=== PATIENT | female | born 1940 | race Caucasian/White ===

== ENCOUNTER → 2016-04-05 | Outpatient (CLI) | payer MEDICARE, BC ==
[2016-04-05 10:14] LABS: CH 33.3; HCT 43.2 % (34.0-46.0); HDW 2.97; HGB 14.3 gm/dL (11.4-16.0); MCH 32.7 pg (25.0-35.0); MCHC 33.2 g/dL (31.0-37.0); MCV 98.5 fL (80.0-100.0); Mean Platelet Volume 7.9; RBC 4.38 m/uL (3.80-5.40); WBC 4.8 k/uL (3.8-10.6)
[2016-04-05 10:49] LABS: ALT 61 U/L (9-52); AST 47 U/L (14-36); Alkaline Phosphatase 73 U/L (38-126); Anion Gap 11 mmol/L; Blood Urea Nitrogen 21 mg/dL (7-17); C Reactive Protein <5.0 mg/L (<10.0); Calcium 10.1 mg/dL (8.4-10.2); Carbon Dioxide 25 mmol/L (22-30); Chloride 108 mmol/L (98-107); Cholesterol 197 mg/dL (<200); Glucose 105 mg/dL (74-99); HDL Cholesterol 59 mg/dL (40-60); Non-African American GFR(MDRD) >60 (>60 ml/min/1.73 sqM); Potassium 4.5 mmol/L (3.5-5.1); Sodium 144 mmol/L (137-145); Total Bilirubin 0.8 mg/dL (0.2-1.3); Total Protein 6.9 g/dL (6.3-8.2); Triglycerides 107 mg/dL (<150)
[2016-04-05 12:44] LABS: Erythrocyte Sedimentation Rate 12 mm/hr (0-20)
== END | disposition home or self-care (01) ==
LOC: LABWHC1 09:40
PROVIDERS: ATTEND Internal Medicine
DX: M12.9 Arthropathy, unspecified (principal)
CPT/HCPCS: 36415; 80053; 80061; 85027; 85652; 86140; 86200

== ENCOUNTER → 2016-10-04 | Outpatient (CLI) | payer MEDICARE, OTHER ==
[2016-10-04 11:14] LABS: CH 33.4; CHCM 34.9; HCT 40.6 % (34.0-46.0); HDW 2.81; HGB 14.3 gm/dL (11.4-16.0); MCH 33.9 pg (25.0-35.0); MCHC 35.2 g/dL (31.0-37.0); MCV 96.3 fL (80.0-100.0); Mean Platelet Volume 7.9; RBC 4.21 m/uL (3.80-5.40); RDW 14.2 % (11.5-15.5); WBC 4.5 k/uL (3.8-10.6)
[2016-10-04 11:36] LABS: ALT 67 U/L (9-52); AST 57 U/L (14-36); Alkaline Phosphatase 68 U/L (38-126); Anion Gap 7 mmol/L; Appearance,Urine Clear (Clear); Bilirubin,Urine Negative (Negative); Blood Urea Nitrogen 25 mg/dL (7-17); Calcium 9.8 mg/dL (8.4-10.2); Carbon Dioxide 25 mmol/L (22-30); Chloride 110 mmol/L (98-107); Cholesterol 185 mg/dL (<200); Glucose 97 mg/dL (74-99); Glucose,Urine (UA) Negative (Negative); HDL Cholesterol 56 mg/dL (40-60); Ketones,Urine Negative (Negative); Leukocyte Esterase,Urine Small (Negative); Mucus,Urine Occasional /hpf; Nitrite,Urine Negative (Negative); Non-African American GFR(MDRD) >60 (>60 ml/min/1.73 sqM); PH, Urine 5.5 (5.0-8.0); Particle Count 3311; Potassium 4.6 mmol/L (3.5-5.1); Protein,Urine Trace (Negative); RBC,Urine 1 /hpf (0-5); Sodium 142 mmol/L (137-145); Specific Gravity,Urine 1.023 (1.001-1.035); Squamous Epithelial Cell,Urine 2 /hpf (0-4); Total Bilirubin 0.8 mg/dL (0.2-1.3); Total Protein 6.9 g/dL (6.3-8.2); Triglycerides 100 mg/dL (<150); UA Billing (MACRO vs. MICRO) MICRO; Urobilinogen,Urine <2.0 mg/dL (<2.0); WBC,Urine 2 /hpf (0-5)
[2016-10-04 12:16] LABS: Erythrocyte Sedimentation Rate 7 mm/hr (0-20)
== END | disposition home or self-care (01) ==
LOC: LABWHC1 10:46
PROVIDERS: ATTEND Internal Medicine
DX: E78.5 Hyperlipidemia, unspecified (principal); M06.9 Rheumatoid arthritis, unspecified; D47.2 Monoclonal gammopathy
CPT/HCPCS: 36415; 80053; 80061; 81001; 84165; 85027; 85652

== ENCOUNTER → 2017-04-02 | Outpatient (CLI) | payer MEDICARE, BC ==
[2017-04-02 11:20] LABS: HCT 44.2 % (34.0-46.0); HGB 14.3 gm/dL (11.4-16.0); MCH 31.9 pg (25.0-35.0); MCHC 32.4 g/dL (31.0-37.0); MCV 98.6 fL (80.0-100.0); Mean Platelet Volume 8.1; Platelet Count 208 k/uL (150-450); RBC 4.48 m/uL (3.80-5.40); RDW 14.5 % (11.5-15.5); WBC 5.3 k/uL (3.8-10.6)
[2017-04-02 11:42] LABS: Albumin 4.1 g/dL (3.5-5.0); Anion Gap 11 mmol/L; Blood Urea Nitrogen 30 mg/dL (7-17); Calcium 10.2 mg/dL (8.4-10.2); Carbon Dioxide 24 mmol/L (22-30); Chloride 108 mmol/L (98-107); Glucose 97 mg/dL (74-99); Potassium 4.4 mmol/L (3.5-5.1); Sodium 143 mmol/L (137-145); Total Bilirubin 0.6 mg/dL (0.2-1.3); Total Protein 6.8 g/dL (6.3-8.2)
[2017-04-02 11:43] LABS: ALT 54 U/L (9-52); AST 44 U/L (14-36); Alkaline Phosphatase 74 U/L (38-126); C Reactive Protein 5.6 mg/L (<10.0)
[2017-04-02 14:21] LABS: Erythrocyte Sedimentation Rate 16 mm/hr (0-20)
[2017-04-02 16:33] LABS: Protein, Total 6.5 g/dL (6.2-8.2)
[2017-04-04 12:34] LABS: Albumin 4.18 g/dL (3.80-4.90); Gamma Globulin 0.76 g/dL (0.70-1.50)
== END | disposition home or self-care (01) ==
LOC: LABWHC1 10:43
PROVIDERS: ATTEND Internal Medicine
DX: M06.9 Rheumatoid arthritis, unspecified (principal); D47.2 Monoclonal gammopathy
CPT/HCPCS: 36415; 80053; 84165; 85027; 85652; 86140

== ENCOUNTER → 2017-10-03 | Outpatient (CLI) | payer MEDICARE, BC ==
[2017-10-03 07:44] LABS: HCT 43.5 % (34.0-46.0); HGB 14.4 gm/dL (11.4-16.0); Macrocytosis Slight; Mean Platelet Volume 7.5; Platelet Count 184 k/uL (150-450); RBC 4.35 m/uL (3.80-5.40); RDW 14.1 % (11.5-15.5); WBC 4.6 k/uL (3.8-10.6)
[2017-10-03 08:13] LABS: Albumin 3.9 g/dL (3.5-5.0); Calcium 9.5 mg/dL (8.4-10.2); Potassium 4.7 mmol/L (3.5-5.1); Total Bilirubin 0.6 mg/dL (0.2-1.3); Total Protein 6.3 g/dL (6.3-8.2)
[2017-10-03 15:47] LABS: Protein, Total 6.3 g/dL (6.2-8.2)
== END | disposition home or self-care (01) ==
LOC: LABWHC1 07:24
PROVIDERS: ATTEND Internal Medicine
DX: E78.5 Hyperlipidemia, unspecified (principal); D47.2 Monoclonal gammopathy; M06.9 Rheumatoid arthritis, unspecified; I10 Essential (primary) hypertension
CPT/HCPCS: 36415; 80053; 80061; 84165; 85027

== ENCOUNTER → 2017-11-13 | Outpatient (CLI) | payer MEDICARE, BC ==
--- NOTE | 2017-11-13 14:22 | NM ---
EXAMINATION TYPE: NM bone scan whole body DATE OF EXAM: 11/13/2017 COMPARISON: NONE, patient's MRI is not supplied for correlation HISTORY: Low back pain, spinal stenosis Delayed whole-body scanning was performed following the injection of 23.7 mCi Tc 99m MDP. Images acq uired 4 hours post injection. FINDINGS: Mild uptake is noted in the lower thoracic, lumbar spine which may be due to degenerative disc change s. Soft tissue uptake is remarkable for some questionable uptake along the lateral margin of the righ t kidney. Uptake within the shoulders, wrists, hands, feet, knees and sternoclavicular joints is like ly degenerative. IMPRESSION: Findings likely represent degenerative disc changes within the visualized spine. There may be calycea l diverticulum in the right kidney, findings indeterminate.
== END | disposition home or self-care (01) ==
LOC: RADNMMAIN 09:19
PROVIDERS: ATTEND Physical Medicine & Rehabilitation
DX: M54.5 Low back pain (principal); M48.062 Spinal stenosis, lumbar region with neurogenic claudication; M51.17 Intervertebral disc disorders with radiculopathy, lumbosacral region; M47.817 Spondylosis without myelopathy or radiculopathy, lumbosacral region; R93.7 Abnormal findings on diagnostic imaging of other parts of musculoskeletal system
CPT/HCPCS: 78306; A9503

== ENCOUNTER → 2017-12-14 | Outpatient (CLI) | payer MEDICARE, BC ==
[2017-12-14 09:32] LABS: Partial Thromboplastin Time 22.1 sec (22.0-30.0)
[2017-12-14 09:40] LABS: Calcium 9.8 mg/dL (8.4-10.2); Potassium 4.6 mmol/L (3.5-5.1)
[2017-12-14 09:50] LABS: Basophils % (A) 1 %; Eosinophils # (A) 0.1 k/uL (0-0.7); Eosinophils % (A) 2 %; HCT 42.1 % (34.0-46.0); HGB 13.8 gm/dL (11.4-16.0); Lymphocytes # (A) 1.5 k/uL (1.0-4.8); Lymphocytes % (A) 38 %; MCHC 32.8 g/dL (31.0-37.0); MCV 100.6 fL (80.0-100.0); Macrocytosis Slight; Mean Platelet Volume 8.1; Monocytes # (A) 0.2 k/uL (0-1.0); Monocytes % (A) 4 %; Neutrophils # (A) 2.1 k/uL (1.3-7.7); Neutrophils % (A) 53 %; Platelet Count 167 k/uL (150-450); RBC 4.18 m/uL (3.80-5.40); RDW 13.5 % (11.5-15.5); WBC 3.9 k/uL (3.8-10.6)
[2017-12-14 09:51] LABS: Appearance,Urine Clear (Clear); Bilirubin,Urine Negative (Negative); Blood,Urine Negative (Negative); Color,Urine Yellow; Glucose,Urine (UA) Negative (Negative); Ketones,Urine Negative (Negative); Leukocyte Esterase,Urine Small (Negative); Mucus,Urine Rare /hpf; Nitrite,Urine Negative (Negative); PH, Urine 6.5 (5.0-8.0); Protein,Urine Trace (Negative); RBC,Urine 4 /hpf (0-5); Specific Gravity,Urine 1.024 (1.001-1.035); Squamous Epithelial Cell,Urine 2 /hpf (0-4); Urobilinogen,Urine <2.0 mg/dL (<2.0); WBC,Urine 3 /hpf (0-5)
--- NOTE | 2017-12-15 22:33 | XR ---
EXAMINATION TYPE: XR chest 2V DATE OF EXAM: 12/14/2017 COMPARISON: 03/09/2016 HISTORY: 77-year-old female presurgical evaluation TECHNIQUE: PA and lateral views FINDINGS: Heart borderline enlarged. Mild elongation thoracic aorta. Mild diffuse interstitial prominence. No c onsolidation or pleural effusion. IMPRESSION: Borderline heart size and chronic appearing changes, possible chronic bronchitis/asthma. No acute pro cess seen.
== END | disposition home or self-care (01) ==
LOC: LABPAT 08:38
PROVIDERS: ATTEND Orthopaedic Surgery Orthopaedic Surgery of the Spine
DX: Z01.818 Encounter for other preprocedural examination (principal); Z01.812 Encounter for preprocedural laboratory examination
CPT/HCPCS: 36415; 71046; 80048; 81001; 85025; 85610; 85730; 87070

== ENCOUNTER 2017-12-25 05:50 | Inpatient (IN) | payer MEDICARE, BC ==
[2017-12-16 14:54] VITALS: BMI 32.9
[~2017-12-25 05:50] MED LIST: BACITRACIN 50,000 UNIT, POLYMYXIN B 500,000 UNIT in SODIUM CHLORIDE 0.9% IRRIGATIO 1,00... IRRIGATION ONE; DEXAMETHASONE SOD PHOSPHATE 10 MG/ML 1 ML VIAL IV ONE; MORPHINE SULFATE 4 MG/ML SYRINGE IV PRN; ONDANSETRON 4 MG/2 ML VIAL IVP ONE; ONDANSETRON 4 MG/2 ML VIAL IVP PRN; ceFAZolin IN SWFI 2 GM/20 ML SYRINGE IVP ONE
[2017-12-25] MEDS ORDERED: LIDOCAINE 1% 20 ML VIAL (10MG/ML) FOR IV START INTRADERMA ONE (06:58)
[2017-12-25] MEDS: LACTATED RINGERS 1,000 ML IV SCH ×2 (06:58→16:30)
[2017-12-25] MEDS ORDERED: fentaNYL (PF) 50 MCG/ML 2 ML AMP ONE (07:59)
[2017-12-25] MEDS ORDERED: NEOSTIGMINE 1 MG/ML 10 ML VIAL ONE (07:59)
[2017-12-25] MEDS ORDERED: MIDAZOLAM 2 MG/2 ML VIAL ONE (07:59)
[2017-12-25] MEDS ORDERED: ROCURONIUM BROMIDE 10 MG/ML 10 ML VIAL IV ONE (07:59)
[2017-12-25] MEDS ORDERED: LIDOCAINE 1% INJ 10MG/ML (20 ML MDV) ONE (07:59)
[2017-12-25] MEDS ORDERED: ePHEDrine SULFATE/0.9% NACL/PF 50 MG/5 ML SYRINGE IV ONE (07:59)
[2017-12-25] MEDS ORDERED: PROPOFOL 10 MG/ML 20 ML VIAL IV ONE (07:59)
[2017-12-25] MEDS ORDERED: GLYCOPYRROLATE 0.2 MG/ML 2 ML VIAL ONE (07:59)
[2017-12-25] MEDS ORDERED: THROMBIN (BOVINE) 5,000 UNIT VIAL TOPICAL ONE (08:00)
[2017-12-25] MEDS ORDERED: LIDOCAINE 0.5%-EPI 1:200,000 50 ML VIAL SQ ONE (08:00)
[2017-12-25] MEDS ORDERED: GELATIN SPONGE,ABSORB (LARGE) 1 EACH SPONGE TOPICAL ONE (08:00)
[2017-12-25] MEDS ORDERED: methylPREDNISolone ACETATE 40 MG/ML 1 ML VIAL MISCELLANE ONE (09:06)
[2017-12-25] MEDS ORDERED: LACTATED RINGERS 1,000 ML IV ONE (09:15)
[2017-12-25] MEDS ORDERED: HYDROmorphone 1 MG/ML 1 ML SYRINGE IVP PRN (09:26)
[2017-12-25] MEDS ORDERED: KETOROLAC 30 MG/ML 1 ML VIAL IVP PRN (09:26)
[2017-12-25] MEDS ORDERED: BENZOCAINE/MENTHOL LOZENG 1 EACH LOZENGE MUCOUS MEM PRN (09:26)
[2017-12-25] MEDS ORDERED: IBUPROFEN 600 MG TAB PO PRN (09:26)
[2017-12-25] MEDS ORDERED: HYDROcodone/APAP 5-325MG 1 EACH TAB PO PRN (09:26)
[2017-12-25] MEDS ORDERED: MAGNESIUM HYDROXIDE 2,400 MG/10 ML CUP PO PRN (09:26)
[2017-12-25] MEDS ORDERED: ACETAMINOPHEN TAB 325 MG TAB PO PRN (09:28)
--- NOTE | 2017-12-25 09:33 | P.OP ---
Date of Procedure: 12/25/17 Preoperative Diagnosis: Severe spinal stenosis L3 4 Neurogenic claudication Bilateral lower extremity radiculopathy Postoperative Diagnosis: Same Anesthesia: GETA Pathology: none sent Condition: stable Disposition: PACU Description of Procedure: DESCRIPTION OF PROCEDURE(S): BRIEF OPERATIVE NOTE Preoperative Diagnosis: Severe Spinal stenosis L3 4, neurogenic claudication, lower extremity radiculopathy Postoperative Diagnosis: Same Procedure: Laminectomy and decompression bilaterally Partial medial facetectomy bilaterally Placement of interbody laminar stabilizing device, Coflex device Use of fluoroscopic guidance Surgeon: Dr. Rajput Retail Sales Representative: Naun COLLAZO who is present throughout the entire the case persistence during positioning, dissection, exposure, visualization, and all crucial elements of the case as well as closure. Anesthesia: General anesthesia Estimated blood loss: Approximately 50 mL Complications: None apparent Components implanted: [employer]igm Coflex interlaminar stabilization device at L3 4 size 14 Disposition: To recovery room in good stable condition. OPERATIVE INDICATIONS The patient has been having issues in their lower back and lower extremities. The patient was having evidence of neurogenic claudication and spinal stenosis along with issues with lower extremity radiculopathy. The patient was found to have severe and clinically significant spinal stenosis at L3 4 which correlated well with their low back and lower extremity symptoms. The patient has been through conservative treatment. Despite conservative treatment she is having worsening of her symptoms and was having great difficulty with any sort of ambulation and standing for any period of time due to the severe stenosis at L3 4. With their imaging, and the level of their stenosis and their propensity for the possibility of recurrent stenosis I felt that decompression with intralaminar stabilization would be a good benefit for the patient. We discussed various treatment options including surgery, and the patient wishes to proceed with surgery We discussed the risk, patient's alternatives and benefits of surgery including but not limited to, risk of bleeding risk of infection, risk of need for further surgery, risk of decreased, loss of motion, loss of function, nerve damage, paralysis, heart attack, blindness and . OPERATIVE SUMMARY After discussing all the risks, patient alternatives and benefits at length, the patient elected to proceed with surgical intervention, signed informed consent, and presented for their procedure. The patient was seen and examined in the preoperative holding area and the surgical site was marked. The patient was given antibiotics and brought to the operating room. The patient was sedated and intubated by anesthesia in standard fashion. The patient was positioned on to the operating room table in a prone position on the appropriate frame which was well-padded and well molded. We were careful to pad any bony prominences and pressure points. We were careful to maintain the patient's cervical spine and good neutral alignment and position throughout. The patient was prepped and draped in a normal standard fashion. An appropriate timeout and keystone protocol performed. We were able to proceed with the surgery. Fluoroscopy was utilized to establish the appropriate level. The local wound area was infiltrated with local anesthetic. An incision was made at the midline longitudinally over the appropriate levels at L3 4. Dissection was taken down subcutaneously to the level of the fascia which was split midline. Dissection was taken over the lamina. Intraoperative fluoroscopy was taken which showed a marker at the appropriate level. With the appropriate level positively confirmed, we were able to proceed with laminectomy. The wound was copiously irrigated and suctioned dry as had been done periodically throughout the case. At L3 4 I performed a laminectomy with a combination of curettes and a high-speed bur and Kerrison rongeurs. A small medial facetectomy was performed again further access. This was done bilaterally at that level. A partial foraminotomy was also performed. Portions of the ligamentum flavum were taken down to expose the dura and traversing nerve root. I was able to mobilize the traversing nerve root bilaterally and establish excellent decompression centrally and at the bilateral neural foramen . There is no evidence of dural tear or leak. Good hemostasis maintained. The wound was copiously irrigated and suctioned dry. Good decompression was noted. At this point further prepared the interspinous process and interlaminar space with a combination of curettes and a high-speed bur and Kerrison rongeurs. As able get good parallel alignment at the interspinous process space and interlaminar space. I used a trial spacer for the Coflex device and have good fit and fill with the appropriate size device of a 14. I had to shave down the spinous process at to allow for appropriate positioning of the Coflex device. The device was prepared and then positioned and malleted in position with good alignment and good position and good bony purchase at the interlaminar space. The position was checked and found to be approximately 3 mm away from the dura without impingement on the dura itself. It was checked and found to be stable. Intraoperative C-arm was utilized to confirm the alignment and position at the appropriate levels. We were able to proceed with closure. The fascia was closed for a watertight closure. The subcuticular tissue was closed with absorbable suture. The wound was cleaned and dried and dressed with the appropriate dressing. The drapes were broken down. The patient was gently rolled back onto their hospital bed being careful to maintain their cervical spine and good neutral alignment and position. They were woken up by anesthesia, extubated, and brought to the recovery room in good stable condition. The patient will be admitted to the hospital for observation and for appropriate postoperative care, medical management and monitoring. We will continue to follow them closely about the postoperative course.
[2017-12-25 09:47] VITALS: RESP 16
[2017-12-25] MEDS: HYDROmorphone 0.5 MG/0.5 ML SYRINGE IVP PRN ×2 (10:07→10:17)
--- NOTE | 2017-12-25 11:01 | XR ---
EXAMINATION TYPE: XR lumbar spine 1V, FL guidance operating room DATE OF EXAM: 12/25/2017 COMPARISON: NONE HISTORY: 77-year-old female with L3-L4 laminectomy FINDINGS: Image shows metallic surgical instrument along the posterior elements at the L4 level. Fluoroscopy time of 3 seconds was used during L3/L4 laminectomies. 1 image/s document/s the procedur [email or web address] IMPRESSION: Intraoperative fluoroscopy as above.
[2017-12-25] MEDS: SODIUM CHLORIDE 0.9% 1,000 ML IV SCH ×2 (11:15→20:22)
[2017-12-25] MEDS ORDERED: METHOTREXATE SODIUM 2.5 MG TAB PO SCH (12:00)
[2017-12-25] MEDS: ceFAZolin IN SWFI 2 GM/20 ML SYRINGE IVP SCH (15:35)
[2017-12-25] MEDS: NITROFURANTOIN MONOHYD/M-CRYST 100 MG CAP PO SCH (20:23)
[2017-12-25] MEDS ORDERED: MELATONIN 1 MG TAB PO SCH (21:00)
[2017-12-26] MEDS: ceFAZolin IN SWFI 2 GM/20 ML SYRINGE IVP SCH (00:19)
[2017-12-26 07:15] VITALS: BP 135/68; PULSE 60; TEMP 98.6
--- NOTE | 2017-12-26 08:47 | P.DS ---
Providers Date of admission: 12/25/17 05:50 Attending physician: Niki Rajput Primary care physician: Rubén Finley [facility] Course: The patient presented on the day of admission as per her operative note. She had severe spinal stenosis at L3 4 with lower extremity neurogenic claudication and radiculopathy and underwent decompression at L3 4 with placement of interlaminar stabilizer. She feels she is doing well today. Her legs are doing well. She has been up out of bed. She denies any nausea or vomiting. Physical Exam The incision site is clean dry and intact. There is no erythema no drainage. There is no purulence no evidence of infection. Her back is soft. There is a small area of some blood on the dressing but it is stable and it is not expanding. There is no active drainage. Abdomen soft and nontender. Chest has good excursion with deep inspiration and expiration. The patient has active and passive range of motion intact at the upper and lower extremities. There is no acute change in neurologic status. She has good strength in bilateral lower extremities Hospital Course Postoperative day #1 status post decompression laminectomy at L3 4 with placement of interlaminar stabilizer for her severe spinal stenosis with disc degeneration and neurogenic claudication with radiculopathy The patient has been making good progress postoperatively. She is happy with results thus far They have completed the prophylactic antibiotics without any signs or symptoms of infection. The patient has been able to advance their diet , and is tolerating diet adequately. The pain was initially controlled with IV medications and is now controlled appropriately with oral medications. The patient has been able to increase their mobilization. The patient has progressed appropriately. I think they are in good stable condition for discharge today. They will be sent home with appropriate prescriptions. I answered their questions to the best of my ability in a language that they can understand and they are agreeable with the plan. They will follow up as directed in approximately 2 weeks or sooner should having problems. Patient Condition at Discharge: Good Plan - Discharge Summary Discharge Rx Participant: Yes New Discharge Prescriptions: New traMADol HCL [Ultram] 50 mg PO Q6HR PRN 3 Days #12 tab PRN Reason: Severe Pain No Action Naproxen [Naprosyn] 375 mg PO DAILY Methotrexate Sodium [Methotrexate] 15 mg PO WE Folic Acid 0.4 mg PO DAILY Acetaminophen Tab [Tylenol Tab] 650 mg PO Q6H PRN PRN Reason: Pain Candesartan Cilexetil [Atacand] 32 mg PO DAILY Nitrofurantoin Monohyd/M-Cryst [Macrobid] 100 mg PO Q12HR Discharge Medication List Methotrexate Sodium [Methotrexate] 15 mg PO WE 08/15/13 [History] Naproxen [Naprosyn] 375 mg PO DAILY 08/15/13 [History] Acetaminophen Tab [Tylenol Tab] 650 mg PO Q6H PRN 12/16/17 [History] Candesartan Cilexetil [Atacand] 32 mg PO DAILY 12/16/17 [History] Folic Acid 0.4 mg PO DAILY 12/16/17 [History] Nitrofurantoin Monohyd/M-Cryst [Macrobid] 100 mg PO Q12HR 12/23/17 [History] traMADol HCL [Ultram] 50 mg PO Q6HR PRN 3 Days #12 tab 12/25/17 [Rx] Follow up Appointment(s)/Referral(s): Rubén Finley MD [Primary Care Provider] - 01/02/18 11:30 am Niki Rajput DO [Doctor of Osteopathic Medicine] - 01/07/18 3:15 pm Activity/Diet/Wound Care/Special Instructions: May ambulate to tolerance. Avoid heavy or rigorous activity. Avoid repetitive bending twisting or lifting. Keep site clean and dry. May shower with waterproof Tegaderm intact. Do not soak in a tub. On Saturday, the patient may remove dressing and then may shower with area uncovered. But leave Steri-Strips intact and allow them to fray off on their own.
[2017-12-26] MEDS ORDERED: LOSARTAN 50 MG TAB PO SCH (09:00)
[2017-12-26] MEDS ORDERED: FOLIC ACID 1 MG TAB PO SCH (09:00)
[2017-12-26] MEDS: NITROFURANTOIN MONOHYD/M-CRYST 100 MG CAP PO SCH (09:32)
== END 2017-12-26 11:28 | disposition home or self-care (01) | DRG 518 ==
LOC: 2ORMAIN 05:50 → 3SUR 09:36
PROVIDERS: ADMIT Orthopaedic Surgery Orthopaedic Surgery of the Spine; ATTEND Orthopaedic Surgery Orthopaedic Surgery of the Spine
PROC: 01NB0ZZ Release Lumbar Nerve, Open Approach (ICD-10-PCS; 2017-12-25)
PROC: 0SH00BZ Insertion of Interspinous Process Spinal Stabilization Device into Lumbar Vertebral Joint, Open Approach (ICD-10-PCS; principal; 2017-12-25 08:00)
DX: M48.062 Spinal stenosis, lumbar region with neurogenic claudication (principal); D47.2 Monoclonal gammopathy; M06.9 Rheumatoid arthritis, unspecified; E66.01 Morbid (severe) obesity due to excess calories; M51.16 Intervertebral disc disorders with radiculopathy, lumbar region; M51.17 Intervertebral disc disorders with radiculopathy, lumbosacral region; M43.16 Spondylolisthesis, lumbar region; M21.372 Foot drop, left foot; E78.5 Hyperlipidemia, unspecified; I10 Essential (primary) hypertension; L30.9 Dermatitis, unspecified; Z68.33 Body mass index [BMI] 33.0-33.9, adult; Z79.1 Long term (current) use of non-steroidal anti-inflammatories (NSAID); Z79.899 Other long term (current) drug therapy; Z90.49 Acquired absence of other specified parts of digestive tract; Z90.710 Acquired absence of both cervix and uterus; Z98.51 Tubal ligation status
CPT/HCPCS: 72020; 86850; 86900; 86901

== ENCOUNTER → 2018-03-21 | Outpatient (CLI) | payer MEDICARE, BC ==
[2018-03-21 11:09] LABS: HCT 44.9 % (34.0-46.0); HGB 14.6 gm/dL (11.4-16.0); MCH 32.1 pg (25.0-35.0); MCHC 32.4 g/dL (31.0-37.0); MCV 99.1 fL (80.0-100.0); Mean Platelet Volume 6.9; Platelet Count 228 k/uL (150-450); RBC 4.53 m/uL (3.80-5.40); RDW 13.8 % (11.5-15.5); WBC 5.1 k/uL (3.8-10.6)
[2018-03-21 12:56] LABS: Erythrocyte Sedimentation Rate 14 mm/hr (0-20)
[2018-03-21 15:43] LABS: Protein, Total 6.5 g/dL (6.2-8.2)
[2018-03-21 16:02] LABS: Albumin 4.4 g/dL (3.80-4.90); Albumin/Globulin Ratio 2.32 (1.20-2.10); Anion Gap 9.6 mmol/L (4.00-12.00); Calcium 9.6 mg/dL (8.7-10.3); Carbon Dioxide 23.4 mmol/L (21.6-31.8); Globulin 1.9 g/dL (1.6-3.3); Potassium 4.7 mmol/L (3.5-5.5); Total Bilirubin 0.7 mg/dL (0.3-1.2); Total Protein 6.3 g/dL (6.2-8.2)
== END | disposition home or self-care (01) ==
LOC: LABWHC1 10:27
PROVIDERS: ATTEND Internal Medicine
DX: D47.2 Monoclonal gammopathy (principal); M06.9 Rheumatoid arthritis, unspecified; I10 Essential (primary) hypertension
CPT/HCPCS: 36415; 80053; 84165; 85027; 85652

== ENCOUNTER → 2018-10-02 | Outpatient (CLI) | payer MEDICARE, BC ==
[2018-10-02 09:18] LABS: HCT 38.9 % (34.0-46.0); HGB 13.1 gm/dL (11.4-16.0); MCH 33.2 pg (25.0-35.0); MCHC 33.7 g/dL (31.0-37.0); MCV 98.5 fL (80.0-100.0); Mean Platelet Volume 8.1; Platelet Count 165 k/uL (150-450); RBC 3.95 m/uL (3.80-5.40); RDW 14.9 % (11.5-15.5); WBC 4.9 k/uL (3.8-10.6)
[2018-10-02 16:21] LABS: African American GFR (CKD) 82.4 (60.0-200.0); Albumin 4.1 g/dL (3.80-4.90); Albumin/Globulin Ratio 2.41 (1.60-3.17); Anion Gap 7.1 mmol/L (4.00-12.00); Calcium 9.5 mg/dL (8.7-10.3); Carbon Dioxide 24.9 mmol/L (21.6-31.8); Globulin 1.7 g/dL (1.6-3.3); Potassium 4.5 mmol/L (3.5-5.5); Protein, Total 5.7 g/dL (6.2-8.2); Total Bilirubin 0.7 mg/dL (0.2-1.2); Total Protein 5.8 g/dL (6.2-8.2)
[2018-10-03 13:36] LABS: Albumin 3.63 g/dL (3.80-4.90); Gamma Globulin 0.74 g/dL (0.70-1.50)
== END | disposition home or self-care (01) ==
LOC: LABWHC1 08:27
PROVIDERS: ATTEND Internal Medicine
DX: M06.9 Rheumatoid arthritis, unspecified (principal); D47.2 Monoclonal gammopathy; E78.5 Hyperlipidemia, unspecified; I10 Essential (primary) hypertension
CPT/HCPCS: 36415; 80053; 80061; 84165; 85027

== ENCOUNTER → 2018-10-08 | Outpatient (CLI) | payer MEDICARE, BC ==
--- NOTE | 2018-10-08 16:21 | US ---
EXAMINATION TYPE: US carotid duplex BILAT DATE OF EXAM: 10/08/2018 COMPARISON: NONE CLINICAL HISTORY: R09.89 Carotid Bruit. Bruit EXAM MEASUREMENTS: RIGHT: Peak Systolic Velocity (PSV) cm/sec ----- Right CCA: 84.2 ----- Right ICA: 106.9 ----- Right ECA: 105.1 ICA/CCA ratio: 1.3 RIGHT: End Diastole cm/sec ----- Right CCA: 16.0 ----- Right ICA: 29.2 ----- Right ECA: 9.5 LEFT: Peak Systolic Velocity (PSV) cm/sec ----- Left CCA: 96.0 ----- Left ICA: 122.1 ----- Left ECA: 99.6 ICA/CCA ratio: 1.3 LEFT: End Diastole cm/sec ----- Left CCA: 19.3 ----- Left ICA: 25.2 ----- Left ECA: 9.5 VERTEBRALS (direction of flow): Right Vertebral: Antegrade Left Vertebral: Antegrade Rhythm: Normal Mild plaque bilateral bifurcations. No evidence of significant stenosis IMPRESSION: 1. Atheromatous plaquing present bilaterally. 2. No significant flow-limiting stenosis. Velocities suggesting Narrowing approaching 50% may be pres ent on the left; monitoring can be performed. Criteria for Assigning % of Stenosis / Diameter reduction (Estimation based on the indirect measurements of the internal carotid artery velocities (ICA PSV). 1. Normal (no stenosis)=ICA PSV < 125 cm/s: ratio < 2.0: ICA EDV<40 cm/s. 2. Less than 50% stenosis=ICA PSV < 125 cm/s: ratio < 2.0: ICA EDV<40 cm/s. 3. 50 to 69% stenosis=ICA PSV of 125 to 230 cm/s: ration 2.0 ? 4.0: ICA EDV 40-100 cm/s. 4. Greater than 70% stenosis to near occlusion= ICA PSV > 230 cm/s: ratio > 4.0: ICA EDV > 100 cm/s. 5. Near occlusion= ICA PSV velocities may be low or undetectable: variable ratio and ICA EDV. 6. Total occlusion=unable to detect flow.
== END | disposition home or self-care (01) ==
LOC: RADUSWWP 12:02
PROVIDERS: ATTEND Internal Medicine
DX: I65.23 Occlusion and stenosis of bilateral carotid arteries (principal)
CPT/HCPCS: 93880

== ENCOUNTER → 2019-03-20 | Outpatient (CLI) | payer MEDICARE, BC ==
[2019-03-20 10:25] LABS: HCT 42.6 % (34.0-46.0); HGB 14.3 gm/dL (11.4-16.0); MCH 33.1 pg (25.0-35.0); MCHC 33.5 g/dL (31.0-37.0); MCV 98.7 fL (80.0-100.0); Mean Platelet Volume 8.1; Platelet Count 182 k/uL (150-450); RBC 4.32 m/uL (3.80-5.40); RDW 13.2 % (11.5-15.5); WBC 4.3 k/uL (3.8-10.6)
[2019-03-20 10:28] LABS: Appearance,Urine Clear (Clear); Bilirubin,Urine Negative (Negative); Blood,Urine Negative (Negative); Color,Urine Yellow; Glucose,Urine (UA) Negative (Negative); Hyaline Casts,Urine 1 /lpf (0-2); Ketones,Urine Negative (Negative); Leukocyte Esterase,Urine Moderate (Negative); Mucus,Urine Rare /hpf; Nitrite,Urine Negative (Negative); Protein,Urine Negative (Negative); RBC,Urine 1 /hpf (0-5); Specific Gravity,Urine 1.025 (1.001-1.035); Squamous Epithelial Cell,Urine 2 /hpf (0-4); Urobilinogen,Urine <2.0 mg/dL (<2.0); WBC,Urine 1 /hpf (0-5)
[2019-03-20 16:10] LABS: ALT 45 U/L (8-44); AST 43 U/L (13-35); African American GFR (CKD) 82.4 (60.0-200.0); Albumin/Globulin Ratio 2.33 (1.60-3.17); Alkaline Phosphatase 62 U/L (41-126); C Reactive Protein <0.4 mg/dL (0.0-0.8); Calcium 9.4 mg/dL (8.7-10.3); Carbon Dioxide 25.6 mmol/L (21.6-31.8); Chloride 110 mmol/L (96-109); Globulin 1.8 g/dL (1.6-3.3); Glucose 111 mg/dL (70-110); Non-African American GFR(CKD) 71.1 (60.0-200.0); Potassium 4.5 mmol/L (3.5-5.5); Sodium 141 mmol/L (135-145); Total Bilirubin 0.7 mg/dL (0.3-1.2)
== END | disposition home or self-care (01) ==
LOC: LABWHC1 09:46
PROVIDERS: ATTEND Internal Medicine
DX: I10 Essential (primary) hypertension (principal); E78.5 Hyperlipidemia, unspecified; D47.2 Monoclonal gammopathy; M06.9 Rheumatoid arthritis, unspecified
CPT/HCPCS: 36415; 80053; 81001; 84165; 85027; 86140

== ENCOUNTER → 2019-04-10 | Outpatient (CLI) | payer MEDICARE, BC ==
--- NOTE | 2019-04-10 12:59 | BD ---
EXAMINATION TYPE: Axial Bone Density DATE OF EXAM: 04/10/2019 COMPARISON: 02/16/2014 CLINICAL HISTORY: M 86.8 Height: 62.2 IN Weight: 195 LBS FRAX RISK QUESTIONS: Secondary Osteoporosis: 3. Menopause before 45: TOTAL HYST AGE 32 Rheumatoid Arthritis: YES RISK FACTORS HISTORY OF: Surgery to Spine: L-SPINE SURGERY 12/2017 Active: YES Diet low in dairy products/other sources of calcium: YES Postmenopausal woman: TOTAL HYST AGE 32 MEDICATIONS: Additional Medications: METHOTREXATE, TYLENOL, NAPROXEN,HIGH BLOOD PRESSURE MEDS EXAM MEASUREMENTS: Bone mineral densitometry was performed using the [employer] System. PT HAD L-SPINE SURGERY 2017 Bone mineral density about the R hip (g/cm2): 0.974 Bone mineral density about the L hip (g/cm2): 0.996 T Score values are as follows: -----R Neck: -0.5 -----L Neck: -0.3 -----R Total: 0.2 -----L Total: 0.4 Bone mineral density has: Decreased -9.2% since study of: 02/16/2014 Bone mineral density about the L Wrist (g/cm2): 0.672 T Score values are as follows: -----Dist. R+U: 0.3 -----Prox. R+U: 0.1 -----Radius total: 0.0 Bone mineral density BASELINE IMPRESSION: Normal (Values between +1 and -1 indicate normal bone mass). Consider repeating this study in 5 year s or sooner if there is some new clinical indication. NOTE: T-SCORE=SD OF THE YOUNG ADULT MEAN.
== END | disposition home or self-care (01) ==
LOC: RADBDWWP 09:19
PROVIDERS: ATTEND Internal Medicine
DX: M85.80 Other specified disorders of bone density and structure, unspecified site (principal)
CPT/HCPCS: 77080

== ENCOUNTER 2020-07-04 23:14 | Emergency (ER) | payer MEDICARE, BC ==
[2020-07-04 23:50] VITALS: RESP 18; TEMP 97.4
[2020-07-05] MEDS ORDERED: MORPHINE SULFATE 4 MG/ML SYRINGE IV STA (00:33)
[2020-07-05] MEDS ORDERED: SODIUM CHLORIDE 0.9% 500 ML 500 ML IV STA (00:33)
--- NOTE | 2020-07-05 00:33 | ED ---
Back Pain HPI - General Chief Complaint: Back Pain/Injury Stated Complaint: RT side flank pain Time Seen by Provider: 07/05/20 00:32 Source: patient Limitations: no limitations - Related Data Home Medications Medication Instructions Recorded Confirmed Naproxen [Naprosyn] 375 mg PO DAILY 08/15/13 12/25/17 metHOTREXate sodium [Methotrexate] 15 mg PO WE 08/15/13 12/25/17 Acetaminophen Tab [Tylenol Tab] 650 mg PO Q6H PRN 12/16/17 12/25/17 Candesartan Cilexetil [Atacand] 32 mg PO DAILY 12/16/17 12/25/17 Folic Acid 0.4 mg PO DAILY 12/16/17 12/25/17 Nitrofurantoin Monohyd/M-Cryst 100 mg PO Q12HR 12/23/17 12/25/17 [Macrobid] Previous Rx's Medication Instructions Recorded traMADol HCL [Ultram] 50 mg PO Q6HR PRN 3 Days #12 tab 12/25/17 Allergies Allergy/AdvReac Type Severity Reaction Status Date / Time No Known Allergies Allergy Verified 07/04/20 23:49 Review of Systems ROS Statement: Those systems with pertinent positive or pertinent negative responses have been documented in the HPI. ROS Other: All systems not noted in ROS Statement are negative. Past Medical History Past Medical History: Hypertension, Rheumatoid Arthritis (RA) Additional Past Medical History / Comment(s): hard to walk very far due to back History of Any Multi-Drug Resistant Organisms: None Reported Past Surgical History: Hysterectomy, Tubal Ligation Additional Past Surgical History / Comment(s): gets steroid shots in her lower lumbar Past Anesthesia/Blood Transfusion Reactions: No Reported Reaction Past Psychological History: No Psychological Hx Reported Smoking Status: Never smoker Past Alcohol Use History: None Reported Past Drug Use History: None Reported - Past Family History Mother Family Medical History: CVA/TIA Additional Family Medical History / Comment(s): from stroke Father Family Medical History: No Reported History General Exam Limitations: no limitations Course Vital Signs 07/04/20 07/05/20 23:44 02:16 Temperature 97.4 F L Pulse Rate 64 70 Respiratory 18 18 Rate Blood Pressure 193/74 202/87 O2 Sat by Pulse 99 98 Oximetry Medical Decision Making - Lab Data Result diagrams: 07/05/20 01:41 07/05/20 01:41 Lab Results 07/05/20 07/05/20 07/05/20 Range/Units 01:41 01:41 01:41 WBC 5.4 (3.8-10.6) k/uL RBC 4.31 (3.80-5.40) m/uL Hgb 14.3 (11.4-16.0) gm/dL Hct 40.9 (34.0-46.0) % MCV 94.9 (80.0-100.0) fL MCH 33.1 (25.0-35.0) pg MCHC 34.9 (31.0-37.0) g/dL RDW 13.5 (11.5-15.5) % Plt Count 183 (150-450) k/uL MPV 7.4 Neutrophils % 55 % Lymphocytes % 33 % Monocytes % 6 % Eosinophils % 2 % Basophils % 1 % Neutrophils # 3.0 (1.3-7.7) k/uL Lymphocytes # 1.8 (1.0-4.8) k/uL Monocytes # 0.3 (0-1.0) k/uL Eosinophils # 0.1 (0-0.7) k/uL Basophils # 0.1 (0-0.2) k/uL Sodium 138 (137-145) mmol/L Potassium 4.6 (3.5-5.1) mmol/L Chloride 106 (98-107) mmol/L Carbon Dioxide 25 (22-30) mmol/L Anion Gap 7 mmol/L BUN 32 H (7-17) mg/dL Creatinine 1.08 H (0.52-1.04) mg/dL Est GFR (CKD-EPI)AfAm 57 (>60 ml/min/1.73 sqM) Est GFR (CKD-EPI)NonAf 49 (>60 ml/min/1.73 sqM) Glucose 117 H (74-99) mg/dL Plasma Lactic Acid Denny 0.8 (0.7-2.0) mmol/L Calcium 10.1 (8.4-10.2) mg/dL Phosphorus 3.9 (2.5-4.5) mg/dL Magnesium 2.3 (1.6-2.3) mg/dL Total Bilirubin 0.7 (0.2-1.3) mg/dL AST 62 H (14-36) U/L ALT 54 H (4-34) U/L Alkaline Phosphatase 78 (38-126) U/L Troponin I (0.000-0.034) ng/mL Total Protein 6.8 (6.3-8.2) g/dL Albumin 4.3 (3.5-5.0) g/dL 07/05/20 Range/Units 01:41 WBC (3.8-10.6) k/uL RBC (3.80-5.40) m/uL Hgb (11.4-16.0) gm/dL Hct (34.0-46.0) % MCV (80.0-100.0) fL MCH (25.0-35.0) pg MCHC (31.0-37.0) g/dL RDW (11.5-15.5) % Plt Count (150-450) k/uL MPV Neutrophils % % Lymphocytes % % Monocytes % % Eosinophils % % Basophils % % Neutrophils # (1.3-7.7) k/uL Lymphocytes # (1.0-4.8) k/uL Monocytes # (0-1.0) k/uL Eosinophils # (0-0.7) k/uL Basophils # (0-0.2) k/uL Sodium (137-145) mmol/L Potassium (3.5-5.1) mmol/L Chloride (98-107) mmol/L Carbon Dioxide (22-30) mmol/L Anion Gap mmol/L BUN (7-17) mg/dL Creatinine (0.52-1.04) mg/dL Est GFR (CKD-EPI)AfAm (>60 ml/min/1.73 sqM) Est GFR (CKD-EPI)NonAf (>60 ml/min/1.73 sqM) Glucose (74-99) mg/dL Plasma Lactic Acid Denny (0.7-2.0) mmol/L Calcium (8.4-10.2) mg/dL Phosphorus (2.5-4.5) mg/dL Magnesium (1.6-2.3) mg/dL Total Bilirubin (0.2-1.3) mg/dL AST (14-36) U/L ALT (4-34) U/L Alkaline Phosphatase (38-126) U/L Troponin I <0.012 (0.000-0.034) ng/mL Total Protein (6.3-8.2) g/dL Albumin (3.5-5.0) g/dL Disposition Clinical Impression: Back pain, Hypertension Disposition: HOME SELF-CARE Condition: Good Instructions (If sedation given, give patient instructions): Acute Low Back Pain (ED) Is patient prescribed a controlled substance at d/c from ED?: No Referrals: Racquel Bennett MD [Primary Care Provider] - 1-2 days
[2020-07-05 01:56] LABS: Basophils # (A) 0.1 k/uL (0-0.2); Basophils % (A) 1 %; Eosinophils # (A) 0.1 k/uL (0-0.7); Eosinophils % (A) 2 %; HCT 40.9 % (34.0-46.0); HGB 14.3 gm/dL (11.4-16.0); Lymphocytes # (A) 1.8 k/uL (1.0-4.8); Lymphocytes % (A) 33 %; MCH 33.1 pg (25.0-35.0); MCHC 34.9 g/dL (31.0-37.0); MCV 94.9 fL (80.0-100.0); Mean Platelet Volume 7.4; Monocytes # (A) 0.3 k/uL (0-1.0); Monocytes % (A) 6 %; Neutrophils % (A) 55 %; Platelet Count 183 k/uL (150-450); RBC 4.31 m/uL (3.80-5.40); RDW 13.5 % (11.5-15.5); WBC 5.4 k/uL (3.8-10.6)
[2020-07-05 02:09] LABS: Albumin 4.3 g/dL (3.5-5.0); Calcium 10.1 mg/dL (8.4-10.2); Magnesium 2.3 mg/dL (1.6-2.3); Phosphorus 3.9 mg/dL (2.5-4.5); Potassium 4.6 mmol/L (3.5-5.1); Total Bilirubin 0.7 mg/dL (0.2-1.3); Total Protein 6.8 g/dL (6.3-8.2)
--- NOTE | 2020-07-05 02:29 | CT ---
EXAM: CT Abdomen and Pelvis Without Intravenous Contrast CLINICAL HISTORY: Pain. TECHNIQUE: Axial computed tomography images of the abdomen and pelvis without intravenous contrast. CTDI is 16.77 mGy and DLP is 897.3 mGy-cm. This CT exam was performed using one or more of the following dose reduction techniques: automated exposure control, adjustment of the mA and/or kV according to patient size, and/or use of iterative reconstruction technique. COMPARISON: No relevant prior studies available. FINDINGS: Lung bases: Unremarkable. No mass. No consolidation. ABDOMEN: Liver: Unremarkable. Gallbladder and bile ducts: Cholecystectomy. No ductal dilation. Pancreas: Unremarkable. No ductal dilation. Spleen: Unremarkable. No splenomegaly. Adrenals: Unremarkable. No mass. Kidneys and ureters: Cortical scarring in the upper aspect of the right kidney. 3.8 cm right renal cyst. This is associated with a small peripheral calcification. This is not further characterized without IV contrast. Nonobstructing right renal calculus. No hydronephrosis or ureteral calculus. Stomach and bowel: Diverticulosis without diverticulitis. No evidence of bowel obstruction. PELVIS: Appendix: No findings to suggest acute appendicitis. Bladder: Unremarkable. No stones. Reproductive: Previous hysterectomy. ABDOMEN and PELVIS: Intraperitoneal space: Unremarkable. No free air. No significant fluid collection. Bones/joints: No acute fracture. No dislocation. Soft tissues: Unremarkable. Vasculature: Extensive atherosclerotic calcification of the abdominal aorta and its major branches without evidence of aneurysm. Lymph nodes: Unremarkable. No enlarged lymph nodes. IMPRESSION: No acute findings in the abdomen or pelvis.
[2020-07-05] MEDS ORDERED: LABETALOL 5 MG/ML VIAL MDV IVP STA (02:31)
[2020-07-05 02:48] LABS: Partial Thromboplastin Time 21.9 sec (22.0-30.0); Prothrombin Time 10.3 sec (9.0-12.0)
[2020-07-05 03:02] VITALS: BP 184/68; PULSE 62
== END 2020-07-05 03:10 | disposition home or self-care (01) ==
LOC: EC 23:14
DX: M54.9 Dorsalgia, unspecified (principal); I10 Essential (primary) hypertension
CPT/HCPCS: 74176; 80053; 83605; 83735; 84100; 84484; 85025; 85610; 85730; 93005; 99284

== ENCOUNTER → 2020-08-24 | Outpatient (CLI) | payer MEDICARE, BC ==
[2020-08-24 10:13] VITALS: BP 194/74; PULSE 66; RESP 18; TEMP 97.4
--- NOTE | 2020-08-24 10:39 | P.CONS ---
History of Present Illness - Reason for Consult Consult date: 08/24/20 - Chief Complaint Lower back and left leg pain - History of Present Illness This is a 79-year-old lady with a history of lower back pain with radiation to the left leg down to the left ankle with numbness and tingling in the left leg. The patient had lumbar fusion and L3 4 level and her most recent MRI showed severe neural foraminal stenosis at the L4 5 and L5-S1 levels on the left side. She also has degenerative disc disease. The patient has been taking Tylenol for her pain however lately she has noticed increasing imbalance and weakness in the left leg. The patient was seen by Dr. Mckinney who referred to us for a trial of interventional pain procedures. She denies taking any anticoagulants and she denies any history of diabetes. She also denies any bowel or bladder dysfunction. Past Medical History Past Medical History: Hypertension, Rheumatoid Arthritis (RA) Additional Past Medical History / Comment(s): hard to walk very far due to back pain, uses a cane History of Any Multi-Drug Resistant Organisms: None Reported Past Surgical History: Back Surgery, Cholecystectomy, Hysterectomy, Tubal Ligation Additional Past Surgical History / Comment(s): has had steriod shot in back Past Anesthesia/Blood Transfusion Reactions: No Reported Reaction Smoking Status: Never smoker - Past Family History Mother Family Medical History: CVA/TIA Additional Family Medical History / Comment(s): from stroke Father Family Medical History: No Reported History Medications and Allergies Home Medications Medication Instructions Recorded Confirmed Type Naproxen [Naprosyn] 375 mg PO DAILY 08/15/13 08/19/20 History metHOTREXate sodium [Methotrexate] 15 mg PO WE 08/15/13 08/19/20 History Acetaminophen Tab [Tylenol Tab] 650 mg PO Q6H PRN 12/16/17 08/19/20 History Candesartan Cilexetil [Atacand] 32 mg PO DAILY 12/16/17 08/19/20 History Folic Acid 0.4 mg PO DAILY 12/16/17 08/19/20 History rOPINIRole HCL [Requip] 0.5 tab PO HS 08/19/20 08/19/20 History Allergies Allergy/AdvReac Type Severity Reaction Status Date / Time No Known Allergies Allergy Verified 08/19/20 13:32 Physical Exam Vitals: Vital Signs Temp Pulse Resp BP Pulse Ox 08/24/20 10:09 97.4 F L 66 18 194/74 97 - Constitutional General appearance: obese - EENT Eyes: PERRLA - Neurologic Absence of deep tendon reflexes in the lower extremities bilaterally. Decreased left leg knee flexion and extension and left hip flexion 4 out of 5 compared to the right side with also decreased left ankle flexion and extension to 4 out of 5 compared to the right side. Straight leg raising test negative bilaterally Mild tenderness in the lumbar paravertebral musculature but not tenderness around the sacroiliac joints Facet loading test is positive bilaterally Neurologic: CNII-XII intact Results Results: The lumbar spine MRI showed fusion at L3 4 level and worsening and multilevel malalignment with moderate spinal canal stenosis at the T11 12 and mild cord impingement, it also showed mild to moderate spinal canal stenosis at the L2-3 level and moderate to severe foraminal stenosis at L3 4 and L4 5 and L5-S1 Assessment and Plan Plan: This is a 79-year-old lady with history of L3 4 lumbar fusion and left lumbar radiculopathy with impingement of the spinal cord at the T11-T12 level and severe neuroforaminal stenosis at the L4 5 and L5-S1 levels. The patient has imbalance problems and weakness in the left leg. She was referred to us by Dr. Mckinney for a trial of interventional pain procedures. The patient may benefit from different types of pain procedures but we will start by doing transforaminal epidural steroid injection at the L4 5 and L5-S1 levels on the left side under fluoroscopic guidance. The procedure was explained to the patient and she was agreeable to it. I thank Dr. Hank butt for
== END ==
LOC: PNWHC3 09:30
PROVIDERS: ATTEND Anesthesiology
DX: M48.04 Spinal stenosis, thoracic region (principal); M48.061 Spinal stenosis, lumbar region without neurogenic claudication; M48.07 Spinal stenosis, lumbosacral region; I10 Essential (primary) hypertension; M06.9 Rheumatoid arthritis, unspecified
CPT/HCPCS: 99211

== ENCOUNTER 2020-09-08 08:24 | Day surgery (SDC) | payer MEDICARE, BC ==
[2020-09-07 09:16] VITALS: BMI 32.5
[~2020-09-08 08:24] MED LIST changes: -BACITRACIN 50,000 UNIT, POLYMYXIN B 500,000 UNIT in SODIUM CHLORIDE 0.9% IRRIGATIO 1,00... IRRIGATION ONE; -DEXAMETHASONE SOD PHOSPHATE 10 MG/ML 1 ML VIAL IV ONE; +LACTATED RINGERS 1,000 ML IV SCH; -MORPHINE SULFATE 4 MG/ML SYRINGE IV PRN; -ONDANSETRON 4 MG/2 ML VIAL IVP ONE; -ONDANSETRON 4 MG/2 ML VIAL IVP PRN; -ceFAZolin IN SWFI 2 GM/20 ML SYRINGE IVP ONE
[2020-09-08 09:29] VITALS: TEMP 98
[2020-09-08] MEDS ORDERED: LIDOCAINE 1% INJ 10MG/ML (20 ML MDV) ONE (10:27)
[2020-09-08] MEDS ORDERED: DEXAMETHASONE SOD PHOSPHATE 10 MG/ML 1 ML VIAL ONE (10:27)
[2020-09-08] MEDS ORDERED: IOPAMIDOL M200 10 ML VIAL ONE (10:27)
--- NOTE | 2020-09-08 10:48 | P.PCN ---
Date of Procedure: 09/08/20 Surgeon: Alysia Hargrove Pathology: none sent Condition: stable Disposition: PACU Description of Procedure: PREOPERATIVE DIAGNOSIS: Lumbar radiculopathy POSTOPERATIVE DIAGNOSIS: Lumbar radiculopathy PROCEDURE 1. Transforaminal epidural steroid injection under fluoroscopic guidance at 4-5 and L5-S1 levelson the left side 2. Lumbar epidurogram. SURGEON: Alysia Hargrove MD ANESTHESIA: Local only with 1% lidocaine EBL: Minimal PROCEDURE INDICATION: The patient with low back pain and radiculopathy symptoms unresponsive to conservative treatment. PROCEDURE DESCRIPTION / TECHNIQUE: The patient was seen and identified in the preoperative area. Risks, benefits, complications, and alternatives were discussed with the patient. The patient agreed to proceed with the procedure and signed the consent. IV was started, and vital signs were stable. Patient was taken to the OR and time out was completed. The patient was placed in the prone position on procedure table and a pillow was placed under the abdomen to reduce lumbar lordosis. The lumbosacral area was prepped and draped in the usual sterile fashion. Critical pause was taken. Vital signs were closely monitored during the procedure. Conscious sedation was used during the procedure to decrease patients anxiety. The vertebral body of the lumbar vertebra L4 was squared off by tilting the C-arm cephalad then the C-arm was tilted to the oblique position and the target point was at the 6 o'clock position of the pedicle of L4 then skin and deeper tissues were localized with 1% lidocaine. Subsequently, a 22-gauge 3.5- inch spinal needle was advanced under a tunneled view fluoroscopic guidance just underneath the chin of the Too dog at the . Under lateral fluoroscopy, the needle was then advanced to the middle of the upper one third of the foramen between(L4-5 ). After negative aspiration of CSF and blood and with no paresthesias, 1 mL of omnipaque contrast dye was injected excellent epidurogram and outlining of the L4 nerve root was identified. Subsequently, 2 mL of block solution containing 10 mg of Decadron and 1 mL of Lidocaine 1% PF was injected. Needle was removed intact . the procedure was repeated at the L5-S1 level on the left side in the same manner. The total dose of steroids used for this procedure was 20 mg of Decadron. .At the end of the procedure, skin was cleansed, and bandages were applied. due to the patient's previous back surgery and significant scar tissue from that surgery I had some difficulty getting into the foramens. I think if we need to repeat this injection one more time it will be better to do it in a different approach ;either interlaminarat the L5-S1 level or caudal with lysis of adhesions which would be preferable COMPLICATIONS: None COMMENTS: DISPOSITION / PLANS: The patient was placed in a supine position and transferred to the recovery area in a stable condition for observation. There was no eviden ce of lower extremity motor or sensory deficit after the procedure. Patient was discharged from the recovery room after meeting discharge criteria. Home discharge instructions were given to the patient by the staff.
[2020-09-08 10:54] VITALS: PULSE 62; RESP 16
--- NOTE | 2020-09-08 11:02 | FL ---
Fluoroscopy HISTORY: Pain 44 seconds fluoroscopy time supplied to the referring clinician. 2 intraoperative C-arm images docum ent the procedure. See dictated report from anesthesia.
[2020-09-08 11:13] VITALS: BP 163/79
== END 2020-09-08 11:16 | disposition home or self-care (01) ==
LOC: ORPAIN 08:24
PROVIDERS: ATTEND Anesthesiology
DX: M54.16 Radiculopathy, lumbar region (principal)
CPT/HCPCS: 64483; 64484; J1100; J2001; Q9966; 99152

== ENCOUNTER 2020-09-22 12:27 | Day surgery (SDC) | payer MEDICARE, BC ==
[2020-09-21 08:19] VITALS: BMI 32.5
[2020-09-22 13:01] VITALS: RESP 18; TEMP 97.8
[2020-09-22] MEDS ORDERED: LIDOCAINE 1% (10MG/ML) FOR IV START INTRADERMA ONE (13:19)
[2020-09-22] MEDS ORDERED: IV FLUID CONTINUATION 1,000 ML IV ONE ×2 (13:19→14:11)
[2020-09-22] MEDS ORDERED: IOPAMIDOL M200 10 ML VIAL ONE (13:26)
[2020-09-22] MEDS ORDERED: MIDAZOLAM 2 MG/2 ML VIAL ONE (13:26)
[2020-09-22] MEDS ORDERED: methylPREDNISolone ACETATE 40 MG/ML 1 ML VIAL ONE (13:26)
[2020-09-22] MEDS ORDERED: fentaNYL (PF) 50 MCG/ML 2 ML AMP ONE (13:26)
[2020-09-22] MEDS ORDERED: SODIUM CHLORIDE 0.9% (PF) 10 ML VIAL ONE (13:26)
--- NOTE | 2020-09-22 13:44 | P.PCN ---
Date of Procedure: 09/22/20 Procedure(s) Performed: PREOP DIAGNOSIS: 1- Lumbar postlaminectomy syndrome. 2-lumbar radiculopathy POSTOP DIAGNOSIS:1- Lumbar postlaminectomy syndrome. 2-lumbar radiculopathy PROCEDURE: 1-Caudal epidural steroid injection with epidurolysis and epidurogram under fluoroscopic guidance. (Fluoroscopy images available in the radiology Department ) 2-caudal epidurogram. ANESTHESIA: Local with 1% lidocaine 3 ml ,and moderate sedation, with Versed mg and fentanyl 50 g. EBL: Minimal. PROCEDURE INDICATION: The patient with post-laminectomy syndrome with low back pain and radiculopathy radiating down in both legs, here for a caudal epidural steroid injection with epidurolysis. PROCEDURE DESCRIPTION: The patient was seen and identified in the preoperative area. Risks, benefits, complications, and alternatives were discussed with the patient. The patient agreed to proceed with the procedure and signed the consent. IV was started, and vital signs were stable. Patient was taken to the OR and time out was completed. The patient was placed in the prone position on procedure table and a pillow was placed under the abdomen to reduce lumbar lordosis. The lumbosacral area was prepped and draped in the usual sterile fashion. Vital signs were closely monitored during the procedure. lateral view and the anterior-posterior plates of the sacrum were identified with infiltration of the area overlying the sacral hiatus with 1% lidocaine .A 17 gauge RK epidural needle was used to advance through the sacral hiatus into the caudal epidural space. Omnipaque 180 dye. 2cc was injected and the position of the needle was verified to be in the midline. A Racz catheter was introduced into the epidural space and was advanced towards the L5-S1 interspace under direct fluoroscopic guidance. Multiple passes were made with the catheter for lysis of epidural adhesions. Depo-Medrol 40 mg with 3ml of preservative free Lidocaine 1% and 5 ml of preservative free normal saline was injected slowly. Additional spread was seen to L4 under fluoroscopy. The needle and the catheter were withdrawn intact. EPIDUROGRAM: Omnipaque 180 mg dye 2 ml was injected with spread of the dye into the caudal epidural space and with spread cutoff at L5 prior to epidurolysis. Post epidurolysis dye 2 ml was injected and spread was seen to L3-4.There was further spread of the solution together with the dye above the L3 COMPLICATIONS: None. DISPOSITION / PLANS: The patient was placed in a supine position and transferred to the recovery area in a stable condition for observation and was discharged from the recovery room after meeting discharge criteria. Home discharge instructions given to the patient by the staff. The patient was reexamined prior to discharge. The patient will schedule a follow up in the clinic in 2-4 weeks.
[2020-09-22 14:11] VITALS: BP 155/80; PULSE 63
--- NOTE | 2020-09-23 09:57 | FL ---
Fluoroscopy HISTORY: Pain 5 seconds fluoroscopy time supplied to the referring clinician. 3 intraoperative C-arm images docume nt the procedure. See dictated report from anesthesia.
== END 2020-09-22 14:17 | disposition home or self-care (01) ==
LOC: ORPAIN 12:27
PROVIDERS: ATTEND Specialist
DX: M96.1 Postlaminectomy syndrome, not elsewhere classified (principal); M54.16 Radiculopathy, lumbar region
CPT/HCPCS: 62264; J2250; J1030; J3010; Q9966; 99152

== ENCOUNTER 2020-10-20 10:31 | Day surgery (SDC) | payer MEDICARE, BC ==
[2020-10-18 15:12] VITALS: BMI 34.7
[2020-10-20 10:53] VITALS: BP 185/79; PULSE 60; RESP 16; TEMP 96.1
== END 2020-10-20 11:03 | disposition home or self-care (01) ==
LOC: ORPAIN 10:31
PROVIDERS: ATTEND Anesthesiology
DX: M51.24 Other intervertebral disc displacement, thoracic region (principal); M51.26 Other intervertebral disc displacement, lumbar region; Z53.8 Procedure and treatment not carried out for other reasons

== ENCOUNTER 2020-12-08 17:31 | Inpatient (IN) | payer MEDICARE, BC ==
[2020-12-08] MEDS ORDERED: SODIUM CHLORIDE 0.9% 1,000 ML IV STA (18:05)
--- NOTE | 2020-12-08 19:03 | ED ---
Extremity Problem HPI - General Chief complaint: Extremity Problem,Nontraumatic Stated complaint: Numbness in Legs Time Seen by Provider: 12/08/20 17:39 Source: patient Mode of arrival: wheelchair - History of Present Illness Initial comments: 80-year-old female presents emergency Department with a chief complaint of bilateral leg weakness. Patient reports earlier today she was trimming bushes and was on her knees. States that she was unable to get off of her knees and to begin walking. Patient reports she had to crawl on her knees to get to the house. Patient reports now she feels like her legs are working without any difficulties. He reports initial thickness was only below the knees but now she is fine. She denies any paresthesias going down to the legs. She denies any calf pain or injuries to the legs. She denies any chest pain or shortness of breath or leg edema. Denies unilateral weakness in the upper extremities. - Related Data Home Medications Medication Instructions Recorded Confirmed Naproxen [Naprosyn] 375 mg PO DAILY 08/15/13 12/08/20 metHOTREXate sodium [Methotrexate] 15 mg PO WE 08/15/13 12/08/20 Candesartan Cilexetil [Atacand] 32 mg PO DAILY 12/16/17 12/08/20 Folic Acid 0.4 mg PO DAILY 12/16/17 12/08/20 Clotrimazole/Betamethasone Dip 1 applic TOPICAL BID 12/08/20 12/08/20 [Lotrisone Cream] rOPINIRole HCL [Requip] 0.25 mg PO HS 12/08/20 12/08/20 Allergies Allergy/AdvReac Type Severity Reaction Status Date / Time No Known Allergies Allergy Verified 12/08/20 19:48 Review of Systems ROS Statement: Those systems with pertinent positive or pertinent negative responses have been documented in the HPI. ROS Other: All systems not noted in ROS Statement are negative. Past Medical History Past Medical History: Hypertension, Rheumatoid Arthritis (RA) Additional Past Medical History / Comment(s): hard to walk very far due to back pain, uses a cane History of Any Multi-Drug Resistant Organisms: None Reported Past Surgical History: Back Surgery, Cholecystectomy, Hysterectomy, Tubal Ligation Additional Past Surgical History / Comment(s): has had steroid shot in back Past Anesthesia/Blood Transfusion Reactions: No Reported Reaction Past Psychological History: No Psychological Hx Reported Smoking Status: Never smoker - Past Family History Mother Family Medical History: CVA/TIA Additional Family Medical History / Comment(s): from stroke Father Family Medical History: No Reported History General Exam Limitations: no limitations General appearance: alert, in no apparent distress, obese Head exam: Present: atraumatic, normocephalic, normal inspection Eye exam: Present: normal appearance, PERRL, EOMI Pupils: Present: normal accommodation ENT exam: Present: normal exam, normal oropharynx, mucous membranes moist, TM's normal bilaterally, normal external ear exam Neck exam: Present: normal inspection, full ROM. Absent: tenderness, lymphadenopathy Respiratory exam: Present: normal lung sounds bilaterally. Absent: respiratory distress, wheezes, rales, rhonchi, stridor, chest wall tenderness, accessory muscle use Cardiovascular Exam: Present: regular rate, normal rhythm, normal heart sounds. Absent: systolic murmur, diastolic murmur Extremities exam: Present: normal inspection, full ROM, normal capillary refill, other (Palpable DP and PT bilaterally. Sensation intact in bilateral lower extremities.). Absent: tenderness, pedal edema, joint swelling, calf tenderness Back exam: Present: normal inspection, full ROM. Absent: tenderness Neurological exam: Present: alert, oriented X3, CN II-XII intact, normal gait Psychiatric exam: Present: normal affect, normal mood Skin exam: Present: warm, dry, intact, normal color Course Vital Signs 12/08/20 12/08/20 17:32 19:41 Temperature 98.3 F Pulse Rate 76 75 Respiratory 19 20 Rate Blood Pressure 189/67 184/86 O2 Sat by Pulse 98 100 Oximetry Medical Decision Making - Medical Decision Making 80-year-old female presents emergency Department with a chief complaint of bilateral leg weakness. On physical examination, patient is well-appearing. Bilateral lower extremities are neurovascularly intact. No focal neural deficits. She does not complain of any chest pain or shortness of breath. Mild concern for dehydration. Patient did have an elevated troponin of 0.285. Patient was given aspirin. Patient continues to not complain about any chest pain or shortness of breath. However, she does have complaints of generalized weakness that seems to have persisted ever since she developed the bilateral lower extremity weakness. Patient will be admitted for cardiac observation. Case discussed with Admitting is Dr lolis. Cardiology consult - Lab Data Result diagrams: 12/08/20 18:55 12/08/20 18:55 Lab Results 12/08/20 12/08/20 12/08/20 Range/Units 18:55 18:55 18:55 WBC 8.2 (3.8-10.6) k/uL RBC 4.26 (3.80-5.40) m/uL Hgb 14.1 (11.4-16.0) gm/dL Hct 41.9 (34.0-46.0) % MCV 98.4 (80.0-100.0) fL MCH 33.2 (25.0-35.0) pg MCHC 33.8 (31.0-37.0) g/dL RDW 13.3 (11.5-15.5) % Plt Count 201 (150-450) k/uL MPV 7.9 Neutrophils % 81 % Lymphocytes % 14 % Monocytes % 4 % Eosinophils % 0 % Basophils % 0 % Neutrophils # 6.6 (1.3-7.7) k/uL Lymphocytes # 1.1 (1.0-4.8) k/uL Monocytes # 0.3 (0-1.0) k/uL Eosinophils # 0.0 (0-0.7) k/uL Basophils # 0.0 (0-0.2) k/uL Sodium 140 (137-145) mmol/L Potassium 3.8 (3.5-5.1) mmol/L Chloride 109 H (98-107) mmol/L Carbon Dioxide 22 (22-30) mmol/L Anion Gap 9 mmol/L BUN 30 H (7-17) mg/dL Creatinine 0.73 (0.52-1.04) mg/dL Est GFR (CKD-EPI)AfAm >90 (>60 ml/min/1.73 sqM) Est GFR (CKD-EPI)NonAf 79 (>60 ml/min/1.73 sqM) Glucose 112 H (74-99) mg/dL Calcium 10.5 H (8.4-10.2) mg/dL Total Bilirubin 0.6 (0.2-1.3) mg/dL AST 55 H (14-36) U/L ALT 41 H (4-34) U/L Alkaline Phosphatase 89 (38-126) U/L Troponin I (0.000-0.034) ng/mL Total Protein 6.7 (6.3-8.2) g/dL Albumin 4.2 (3.5-5.0) g/dL Urine Color Yellow Urine Appearance Clear (Clear) Urine pH 5.5 (5.0-8.0) Ur Specific [place] 1.022 (1.001-1.035) Urine Protein 1+ H (Negative) Urine Glucose (UA) Negative (Negative) Urine Ketones Trace H (Negative) Urine Blood Negative (Negative) Urine Nitrite Negative (Negative) Urine Bilirubin Negative (Negative) Urine Urobilinogen <2.0 (<2.0) mg/dL Ur Leukocyte Esterase Trace H (Negative) Urine RBC 2 (0-5) /hpf Urine WBC 1 (0-5) /hpf Ur Squamous Epith Cells 1 (0-4) /hpf Hyaline Casts 1 (0-2) /lpf Urine Mucus Occasional H (None) /hpf 12/08/20 Range/Units 18:55 WBC (3.8-10.6) k/uL RBC (3.80-5.40) m/uL Hgb (11.4-16.0) gm/dL Hct (34.0-46.0) % MCV (80.0-100.0) fL MCH (25.0-35.0) pg MCHC (31.0-37.0) g/dL RDW (11.5-15.5) % Plt Count (150-450) k/uL MPV Neutrophils % % Lymphocytes % % Monocytes % % Eosinophils % % Basophils % % Neutrophils # (1.3-7.7) k/uL Lymphocytes # (1.0-4.8) k/uL Monocytes # (0-1.0) k/uL Eosinophils # (0-0.7) k/uL Basophils # (0-0.2) k/uL Sodium (137-145) mmol/L Potassium (3.5-5.1) mmol/L Chloride (98-107) mmol/L Carbon Dioxide (22-30) mmol/L Anion Gap mmol/L BUN (7-17) mg/dL Creatinine (0.52-1.04) mg/dL Est GFR (CKD-EPI)AfAm (>60 ml/min/1.73 sqM) Est GFR (CKD-EPI)NonAf (>60 ml/min/1.73 sqM) Glucose (74-99) mg/dL Calcium (8.4-10.2) mg/dL Total Bilirubin (0.2-1.3) mg/dL AST (14-36) U/L ALT (4-34) U/L Alkaline Phosphatase (38-126) U/L Troponin I 0.285 H* (0.000-0.034) ng/mL Total Protein (6.3-8.2) g/dL Albumin (3.5-5.0) g/dL Urine Color Urine Appearance (Clear) Urine pH (5.0-8.0) Ur Specific [place] (1.001-1.035) Urine Protein (Negative) Urine Glucose (UA) (Negative) Urine Ketones (Negative) Urine Blood (Negative) Urine Nitrite (Negative) Urine Bilirubin (Negative) Urine Urobilinogen (<2.0) mg/dL Ur Leukocyte Esterase (Negative) Urine RBC (0-5) /hpf Urine WBC (0-5) /hpf Ur Squamous Epith Cells (0-4) /hpf Hyaline Casts (0-2) /lpf Urine Mucus (None) /hpf - EKG Data EKG Comments: Inverted T waves in lead 3 Ventricular rate 68, NM 192, QRS 106, QTC 425. Disposition Clinical Impression: Elevated troponin, Weakness Disposition: ADMITTED IP TO THIS HOSP Condition: Fair Is patient prescribed a controlled substance at d/c from ED?: No Referrals: Racquel Bennett MD [Primary Care Provider] - 1-2 days Time of Disposition: 20:57
[2020-12-08 19:07] LABS: Basophils % (A) 0 %; Eosinophils % (A) 0 %; HCT 41.9 % (34.0-46.0); HGB 14.1 gm/dL (11.4-16.0); Lymphocytes # (A) 1.1 k/uL (1.0-4.8); Lymphocytes % (A) 14 %; MCH 33.2 pg (25.0-35.0); MCHC 33.8 g/dL (31.0-37.0); MCV 98.4 fL (80.0-100.0); Mean Platelet Volume 7.9; Monocytes # (A) 0.3 k/uL (0-1.0); Monocytes % (A) 4 %; Neutrophils # (A) 6.6 k/uL (1.3-7.7); Neutrophils % (A) 81 %; Platelet Count 201 k/uL (150-450); RBC 4.26 m/uL (3.80-5.40); RDW 13.3 % (11.5-15.5); WBC 8.2 k/uL (3.8-10.6)
[2020-12-08 19:16] LABS: ALT 41 U/L (4-34); AST 55 U/L (14-36); African American GFR (CKD) >90 (>60 ml/min/1.73 sqM); Albumin 4.2 g/dL (3.5-5.0); Alkaline Phosphatase 89 U/L (38-126); Anion Gap 9 mmol/L; Blood Urea Nitrogen 30 mg/dL (7-17); Calcium 10.5 mg/dL (8.4-10.2); Carbon Dioxide 22 mmol/L (22-30); Chloride 109 mmol/L (98-107); Glucose 112 mg/dL (74-99); Non-African American GFR(CKD) 79 (>60 ml/min/1.73 sqM); Potassium 3.8 mmol/L (3.5-5.1); Sodium 140 mmol/L (137-145); Total Bilirubin 0.6 mg/dL (0.2-1.3); Total Protein 6.7 g/dL (6.3-8.2)
[2020-12-08 19:24] LABS: Appearance,Urine Clear (Clear); Bilirubin,Urine Negative (Negative); Blood,Urine Negative (Negative); Color,Urine Yellow; Glucose,Urine (UA) Negative (Negative); Hyaline Casts,Urine 1 /lpf (0-2); Ketones,Urine Trace (Negative); Leukocyte Esterase,Urine Trace (Negative); Mucus,Urine Occasional /hpf; Nitrite,Urine Negative (Negative); PH, Urine 5.5 (5.0-8.0); Protein,Urine 1+ (Negative); RBC,Urine 2 /hpf (0-5); Specific Gravity,Urine 1.022 (1.001-1.035); Squamous Epithelial Cell,Urine 1 /hpf (0-4); Urobilinogen,Urine <2.0 mg/dL (<2.0); WBC,Urine 1 /hpf (0-5)
[2020-12-08] MEDS ORDERED: ASPIRIN 325 MG TAB PO STA (19:43)
[2020-12-08] MEDS ORDERED: NITROGLYCERIN SL TABS 0.4 MG TAB SUBLINGUAL PRN (20:48)
[2020-12-08] MEDS ORDERED: cloNIDine HCL 0.2 MG TAB PO PRN (23:15)
[2020-12-08] MEDS ORDERED: TEMAZEPAM 7.5 MG CAP PO PRN (23:15)
[2020-12-09] MEDS ORDERED: HEPARIN SODIUM 1,000 UN/ML (10ML VL) IV ONE (01:28)
[2020-12-09] MEDS ORDERED: HEPARIN SODIUM 1,000 UN/ML (10ML VL) IV PRN (01:28)
[2020-12-09] MEDS ORDERED: HEPARIN SOD,PORK IN 0.45% NACL 25,000 UNIT in 0.45% NACL 1 250ML.BAG IV SCH (01:30)
--- NOTE | 2020-12-09 02:08 | P.HPIM ---
History of Present Illness H&P Date: 12/08/20 Chief Complaint: generalized weakness 80 year old female with chronic lower back pain, , hypertension patient comes in today due to progressive generalized weakness. she does have lower back problems with lower extremity weakness, however over past couple days she has been experiencing some generalized weakness, today she was only able to do 5 min of yard work and she was so weak that could not stand up again on her own ,. she denies any focal neuro deficits, denies any headache,double vision or hearing changes, denies any speech changes. she denies any chest pain, trouble breathing or palpitations, denies any nausea or vomiting , denies any dizziness. in the ED workup showed elevated troponin with EKG showing T wave inversion in lead 3. Review of Systems Pertinent positives as noted in HPI. All other systems were reviewed and are negative Past Medical History Past Medical History: Hypertension, Rheumatoid Arthritis (RA) Additional Past Medical History / Comment(s): hard to walk very far due to back pain, uses a cane History of Any Multi-Drug Resistant Organisms: None Reported Past Surgical History: Back Surgery, Cholecystectomy, Hysterectomy, Tubal Ligation Additional Past Surgical History / Comment(s): has had steroid shot in back Past Anesthesia/Blood Transfusion Reactions: No Reported Reaction Past Psychological History: No Psychological Hx Reported Smoking Status: Never smoker Past Alcohol Use History: Rare Past Drug Use History: None Reported - Past Family History Mother Family Medical History: CVA/TIA Additional Family Medical History / Comment(s): from stroke Father Family Medical History: No Reported History Medications and Allergies Home Medications Medication Instructions Recorded Confirmed Type Naproxen [Naprosyn] 375 mg PO DAILY 08/15/13 12/08/20 History metHOTREXate sodium [Methotrexate] 15 mg PO WE 08/15/13 12/08/20 History Candesartan Cilexetil [Atacand] 32 mg PO DAILY 12/16/17 12/08/20 History Folic Acid 0.4 mg PO DAILY 12/16/17 12/08/20 History Clotrimazole/Betamethasone Dip 1 applic TOPICAL BID 12/08/20 12/08/20 History [Lotrisone Cream] rOPINIRole HCL [Requip] 0.25 mg PO HS 12/08/20 12/08/20 History Allergies Allergy/AdvReac Type Severity Reaction Status Date / Time No Known Allergies Allergy Verified 12/08/20 19:48 Physical Exam Vitals: Vital Signs Temp Pulse Pulse Resp BP BP BP 12/08/20 23:15 98 F 69 21 134/57 12/08/20 22:20 97.9 F 71 20 183/78 173/78 12/08/20 21:59 97.9 F 74 18 205/87 12/08/20 21:43 77 18 12/08/20 20:45 75 20 187/85 12/08/20 19:41 75 20 184/86 12/08/20 17:32 98.3 F 76 19 189/67 Pulse Ox 12/08/20 23:15 99 12/08/20 22:20 97 12/08/20 21:59 100 12/08/20 21:43 99 12/08/20 20:45 99 12/08/20 19:41 100 12/08/20 17:32 98 Intake and Output 12/08/20 12/08/20 12/09/20 14:59 22:59 06:59 Other: Voiding Method Toilet # Voids 1 Weight 81.647 kg Constitutional: No acute distress, conversant, pleasant Eyes: Anicteric sclerae, moist conjunctiva, Pupils equal round reactive to light ENMT: NC/AT Oropharynx clear, no erythema, or exudates Neck: Supple, FROM, no masses, or JVD No carotid bruits No thyromegaly Lungs: Clear to auscultation Clear to percussion Normal respiratory effort, no accessory muscle use Cardiovascular: Heart regular in rate and rhythm, No murmurs, gallops, or rubs No peripheral edema Abdominal: Soft Nontender, no guarding, rebound or rigidity Abdomen moving with respiration Normoactive bowel sounds No hepatomegaly, No splenomegaly No palpable mass No abdominal wall hernia noted Skin: Normal temperature, tone, texture, turgor No induration No subcutaneous nodules No rash, lesions No ulcers Extremities: No digital cyanosis No clubbing Pedal pulses intact and symmetrical Radial pulses intact and symmetrical No calf tenderness Psychiatric: Alert and oriented to person, place and time Appropriate affect fair judgement Neuro Muscles Strength 3/5 bilateral lower extremity , Muscles Strength 4/5 bilateral upper extremity , (antigravity muscle groups are weaker) Sensation to light touch grossly present throughout Cranial nerves II-XII grossly intact No focal sensory deficits Lymphatics: no palpable cervical or supraclavicular , or inguinal lymph nodes Results CBC & Chem 7: 12/08/20 18:55 12/08/20 18:55 Labs: Abnormal Lab Results - Last 24 Hours (Table) 12/08/20 12/08/20 12/08/20 Range/Units 18:55 18:55 18:55 Chloride 109 H (98-107) mmol/L BUN 30 H (7-17) mg/dL Glucose 112 H (74-99) mg/dL Calcium 10.5 H (8.4-10.2) mg/dL AST 55 H (14-36) U/L ALT 41 H (4-34) U/L Troponin I 0.285 H* (0.000-0.034) ng/mL Urine Protein 1+ H (Negative) Urine Ketones Trace H (Negative) Ur Leukocyte Esterase Trace H (Negative) Urine Mucus Occasional H (None) /hpf 12/08/20 Range/Units 22:52 Chloride (98-107) mmol/L BUN (7-17) mg/dL Glucose (74-99) mg/dL Calcium (8.4-10.2) mg/dL AST (14-36) U/L ALT (4-34) U/L Troponin I 0.448 H* (0.000-0.034) ng/mL Urine Protein (Negative) Urine Ketones (Negative) Ur Leukocyte Esterase (Negative) Urine Mucus (None) /hpf Thrombosis Risk Factor Assmnt - Choose All That Apply Each Risk Factor Represents 3 Points: Age 75 years or older Thrombosis Risk Factor Assessment Total Risk Factor Score: 3 Thrombosis Risk Factor Assessment Level: Moderate Risk Assessment and Plan Assessment: elevated trops , 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
[2020-12-09] MEDS ORDERED: HYDROcodone/APAP 5-325MG 1 EACH TAB PO STA (02:26)
[2020-12-09] MEDS ORDERED: HEPARIN SODIUM,PORCINE 2,500 UNIT in SODIUM CHLORIDE 0.9% 250 ML IRRIGATION PRN (07:00)
[2020-12-09] MEDS ORDERED: HEPARIN SODIUM,PORCINE 10,000 UNIT in SODIUM CHLORIDE 0.9% 1,000 ML IRRIGATION PRN (07:00)
--- NOTE | 2020-12-09 08:40 | P.PN ---
<Gui Herman - Last Filed: 12/09/20 12:22> Subjective Progress Note Date: 12/09/20 Hospital course: Patient is a very pleasant 80-year-old female with a past medical history of chronic back pain status post lumbar fusion, hypertension, and restless leg syndrome. She presented to the emergency department on 12/08/20 with a chief complaint of bilateral lower extremity weakness. Patient reports she was doing some yard work and after about 5 minutes she felt very weak and had to sit down. Patient reports she was unable to stand up again on her own. She states her legs are just too weak. Patient does report a history of chronic lower back pain with previous lumbar fusion as reported above, however she states she is typically able to get up on her own, but yesterday she had to crawl back to the house. She was seen and fully evaluated in the emergency department. An EKG was completed showing normal sinus rhythm at 68 bpm with T-wave inversion in lead III which was not present on previous EKG completed 07/05/20. Labs drawn revealing an elevated troponin of 0.285, 0.448, and 0.444. CBC was unremarkable and BMP revealing prerenal azotemia with BUN of 30. Patient was admitted under our services with consultation to cardiology. She was given aspirin and atorvastatin and started on heparin infusion. Echocardiogram revealing an EF of 50-55% with no significant valvular abnormalities. Patient being taken down for cardiac cath this morning. Physical exam: Patient seen and fully evaluated at the bedside this morning. She reports feeling better this morning and states her legs feel much stronger and has been able to get to and from bedside commode without difficulties. Patient denies having any headache, lightheadedness, dizziness, chest pain, palpitations, shortness of breath, dyspnea with exertion. Patient being taken down for cardiac cath this morning. Vital signs reviewed and stable. General: Nontoxic, no distress and appears stated age. Derm: Skin warm and dry, normal coloration for ethnicity. Head: Atraumatic, normocephalic and symmetric. Eyes: EOMs intact, no lid lag, and anicteric sclera Mouth: no lip lesions, mucus membranes moist Cardiovascular: regular rate and rhythm with normal S1S2, no murmur, positive posterior tibial pulses bilaterally, and cap refill < 2 seconds. Lungs: Respirations even, regular, and unlabored on room air. Lungs CTA bilaterally, no rhonchi, no rales, no wheezing, and no accessory muscle usage. Abdominal: soft, nontender to palpation, no guarding, no appreciable organomegaly Ext: ROM intact. No gross muscle atrophy, no edema, no contractures Neuro: Speech clear, face symmetrical and CN II-XII grossly intact with no noted focal neuro deficits Psych: Alert and oriented to person, place, time, and situation. Appropriate and pleasant affect. Assessment and Plan of Care: NSTEMI -EKG was completed showing normal sinus rhythm at 68 bpm with T-wave inversion in lead III which was not present on previous EKG completed 07/05/20. -Elevated troponin of 0.285, 0.448, and 0.444. -Consult to cardiology, Patient being taken down for cardiac cath this morning. -Echocardiogram revealing an EF of 50-55% with no significant valvular abnormalities. -Continue daily aspirin and atorvastatin -Continue heparin, pharmacy to dose -Continuous telemetry monitoring Lower extremity weakness with chronic lower back pain status post previous lumbar fusion -Symptomatic care and pain management -Consult orthospine -PT/OT -Fall precautions Hypertension -Monitor vital signs and Continue daily medication regimen with losartan. Restless leg syndrome -Continue daily medication regimen with Requip. CODE STATUS: Full code DVT prophylaxis: Heparin Discussed with: Patient and RN Anticipated discharge date: Clinical course to determine Anticipated discharge place: Home A total of 45 minutes was spent on the care of this complex patient more than 50% of the time was spent in counseling and care coordination. Objective - Vital Signs Vital signs: Vital Signs Temp 98.3 F 12/09/20 08:00 Pulse 64 12/09/20 08:00 Resp 18 12/09/20 08:00 BP 191/88 12/09/20 08:00 Pulse Ox 100 12/09/20 08:00 Intake & Output 12/08/20 12/09/20 12/09/20 18:59 06:59 18:59 Weight 81.647 kg 84.5 kg Other: Voiding Method Toilet # Voids 1 - Labs CBC & Chem 7: 12/09/20 08:14 12/08/20 18:55 Labs: Abnormal Lab Results - Last 24 Hours (Table) 12/08/20 12/08/20 12/08/20 Range/Units 18:55 18:55 18:55 Chloride 109 H (98-107) mmol/L BUN 30 H (7-17) mg/dL Glucose 112 H (74-99) mg/dL Calcium 10.5 H (8.4-10.2) mg/dL AST 55 H (14-36) U/L ALT 41 H (4-34) U/L Troponin I 0.285 H* (0.000-0.034) ng/mL Urine Protein 1+ H (Negative) Urine Ketones Trace H (Negative) Ur Leukocyte Esterase Trace H (Negative) Urine Mucus Occasional H (None) /hpf 12/08/20 12/09/20 Range/Units 22:52 02:33 Chloride (98-107) mmol/L BUN (7-17) mg/dL Glucose (74-99) mg/dL Calcium (8.4-10.2) mg/dL AST (14-36) U/L ALT (4-34) U/L Troponin I 0.448 H* 0.444 H* (0.000-0.034) ng/mL Urine Protein (Negative) Urine Ketones (Negative) Ur Leukocyte Esterase (Negative) Urine Mucus (None) /hpf <Debra Guthrie - Last Filed: 12/09/20 17:52> Objective - Vital Signs Vital signs: Vital Signs Temp 97.9 F 12/09/20 14:28 Pulse 67 12/09/20 14:28 Resp 17 12/09/20 14:28 BP 167/74 12/09/20 14:28 Pulse Ox 98 12/09/20 14:28 Intake & Output 12/08/20 12/09/20 12/09/20 18:59 06:59 18:59 Intake Total 298 Balance 298 Weight 81.647 kg 84.5 kg 84.5 kg Intake: IV 160 0.9 10 Intake, IV Titration 18 Amount Heparin Sod,Pork in 0.45% 18 NaCl 25,000 unit In 0.45 % NaCl 1 250ml.bag @ 12 UNITS/KG/HR 9.798 mls/hr IV .Q24H SIMONE Rx#: [id number] Oral 120 Other: Voiding Method Toilet Toilet # Voids 1 2 - Labs CBC & Chem 7: 12/09/20 08:14 12/08/20 18:55 Labs: Abnormal Lab Results - Last 24 Hours (Table) 12/08/20 12/08/20 12/08/20 Range/Units 18:55 18:55 18:55 MCV (80.0-100.0) fL APTT (22.0-30.0) sec Chloride 109 H (98-107) mmol/L BUN 30 H (7-17) mg/dL Glucose 112 H (74-99) mg/dL Calcium 10.5 H (8.4-10.2) mg/dL Ferritin (10.0-291.0) ng/mL AST 55 H (14-36) U/L ALT 41 H (4-34) U/L Troponin I 0.285 H* (0.000-0.034) ng/mL Urine Protein 1+ H (Negative) Urine Ketones Trace H (Negative) Ur Leukocyte Esterase Trace H (Negative) Urine Mucus Occasional H (None) /hpf 12/08/20 12/09/20 12/09/20 Range/Units 22:52 02:33 08:14 MCV (80.0-100.0) fL APTT (22.0-30.0) sec Chloride (98-107) mmol/L BUN (7-17) mg/dL Glucose (74-99) mg/dL Calcium (8.4-10.2) mg/dL Ferritin 414.4 H (10.0-291.0) ng/mL AST (14-36) U/L ALT (4-34) U/L Troponin I 0.448 H* 0.444 H* (0.000-0.034) ng/mL Urine Protein (Negative) Urine Ketones (Negative) Ur Leukocyte Esterase (Negative) Urine Mucus (None) /hpf 12/09/20 12/09/20 Range/Units 08:14 08:14 MCV 100.4 H (80.0-100.0) fL APTT 55.8 H (22.0-30.0) sec Chloride (98-107) mmol/L BUN (7-17) mg/dL Glucose (74-99) mg/dL Calcium (8.4-10.2) mg/dL Ferritin (10.0-291.0) ng/mL AST (14-36) U/L ALT (4-34) U/L Troponin I (0.000-0.034) ng/mL Urine Protein (Negative) Urine Ketones (Negative) Ur Leukocyte Esterase (Negative) Urine Mucus (None) /hpf Assessment and Plan Assessment: I reviewed the documentation as provided by the IVETTE above, who is the original author of this note. I agree with the documented assessment and plan, with the following changes: None
[2020-12-09] MEDS ORDERED: ASPIRIN 325 MG TAB PO SCH (09:00)
[2020-12-09] MEDS ORDERED: ASPIRIN 81 MG PO SCH (09:00)
[2020-12-09 09:01] LABS: Basophils % (A) 0 %; Eosinophils # (A) 0.1 k/uL (0-0.7); Eosinophils % (A) 2 %; HCT 40.7 % (34.0-46.0); HGB 13.5 gm/dL (11.4-16.0); Lymphocytes # (A) 2.4 k/uL (1.0-4.8); Lymphocytes % (A) 39 %; MCH 33.3 pg (25.0-35.0); MCHC 33.2 g/dL (31.0-37.0); MCV 100.4 fL (80.0-100.0); Macrocytosis Slight; Mean Platelet Volume 8.2; Monocytes # (A) 0.2 k/uL (0-1.0); Monocytes % (A) 4 %; Neutrophils # (A) 3.3 k/uL (1.3-7.7); Neutrophils % (A) 53 %; Platelet Count 184 k/uL (150-450); RBC 4.05 m/uL (3.80-5.40); RDW 13.4 % (11.5-15.5); WBC 6.2 k/uL (3.8-10.6)
[2020-12-09 09:02] LABS: Partial Thromboplastin Time 55.8 sec (22.0-30.0); Prothrombin Time 10.4 sec (9.0-12.0)
[2020-12-09] MEDS ORDERED: SODIUM CHLORIDE 0.9% 1,000 ML in EMPTY BAG 1 BAG IV ONE (09:47)
[2020-12-09] MEDS ORDERED: ALPRAZolam 0.5 MG TAB PO PRN (09:47)
[2020-12-09] MEDS ORDERED: ATORVASTATIN 80 MG TAB PO STA (09:47)
[2020-12-09] MEDS ORDERED: ALPRAZolam 0.25 MG TAB PO PRN (09:47)
[2020-12-09] MEDS ORDERED: ASPIRIN 325 MG TAB PO STA (09:52)
[2020-12-09] MEDS ORDERED: LIDOCAINE 1% INJ 10MG/ML (20 ML MDV) ONE (10:40)
[2020-12-09] MEDS ORDERED: VERAPAMIL 2.5 MG/ML 2 ML AMP ONE (10:40)
[2020-12-09] MEDS ORDERED: fentaNYL (PF) 50 MCG/ML 2 ML AMP ONE (10:44)
[2020-12-09] MEDS ORDERED: HEPARIN SODIUM 1,000 UN/ML (10ML VL) ONE (10:46)
[2020-12-09] MEDS ORDERED: LIDOCAINE 1% INJ 10MG/ML (20 ML MDV) SQ ONE (10:56)
[2020-12-09] MEDS ORDERED: VERAPAMIL SYRINGE (5 MG/10 ML) INTRAARTER ONE ×2 (10:56→10:58)
[2020-12-09] MEDS ORDERED: MIDAZOLAM 2 MG/2 ML VIAL IV ONE ×2 (10:56)
[2020-12-09] MEDS ORDERED: fentaNYL (PF) 50 MCG/ML 2 ML AMP IV ONE (10:56)
[2020-12-09] MEDS: HEPARIN SODIUM 1,000 UN/ML (10ML VL) IV ONE ×2 (11:06→11:18)
--- NOTE | 2020-12-09 11:07 | P.PN ---
Progress Note - Text Progress Note Date: 12/09/20 Attemped to see patient this morning. She was in the shower and preparing for heart cath. Case discussed with Dr. Rajput and he is recommending an LSO brace. The script will be placed in the chart today. Full consultation to follow.
[2020-12-09] MEDS ORDERED: TICAGRELOR 90 MG TAB ONE (11:09)
[2020-12-09] MEDS ORDERED: TICAGRELOR 90 MG TAB PO ONE (11:16)
[2020-12-09] MEDS ORDERED: NITROGLYCERIN 1000MCG/10ML SYRINGE INTRACORON ONE ×3 (11:18→11:30)
[2020-12-09] MEDS ORDERED: IOPAMIDOL-370 125ML BTL INJ ONE (11:30)
[2020-12-09] MEDS ORDERED: IOPAMIDOL-370 100ML BTL INJ ONE (11:32)
[2020-12-09] MEDS ORDERED: IV FLUID CONTINUATION 1,000 ML IV ONE (11:34)
--- NOTE | 2020-12-09 11:40 | ECHOF ---
Referral Reason:LV function, elevated troponin MEASUREMENTS -------- HEIGHT: 167.6 cm WEIGHT: 81.6 kg BP: RVIDd: 3.3 cm (< 3.3) IVSd: 1.2 cm (0.6 - 1.1) LVIDd: 4.6 cm (3.9 - 5.3) LVPWd: 1.5 cm (0.6 - 1.1) IVSs: 1.9 cm LVIDs: 3.7 cm LVPWs: 1.2 cm LAESV Index (A-L): 31.82 ml/m Ao Diam: 2.9 cm (2.0 - 3.7) AV Cusp: 1.9 cm (1.5 - 2.6) LA Diam: 4.6 cm (2.7 - 3.8) MV EXCURSION: 20.304 mm (> 18.000) MV EF SLOPE: 50 mm/s (70 - 150) EPSS: 0.5 cm MV E Guillermo: 0.82 m/s MV DecT: 223 ms MV A Guillermo: 1.16 m/s MV E/A Ratio: 0.71 RAP: 5.00 mmHg RVSP: 21.84 mmHg FINDINGS -------- Sinus rhythm. This was a technically good study. The left ventricular size is normal. There is borderline concentric left ventricular hypertrophy. Overall left ventricular systolic function is low-normal with, an EF between 50 - 55 %. The right ventricle is normal in size. LA is midly dilated 29-33ml/m2. The right atrial size is normal. There is mild aortic valve sclerosis. There is no evidence of aortic regurgitation. Mild mitral regurgitation is present. Mild tricuspid regurgitation present. Right ventricular systolic pressure is normal at < 35 mmHg. There is no pulmonic regurgitation present. The aortic root size is normal. Echo free space represents a pericardial fat pad. CONCLUSIONS -------- 1. The left ventricular size is normal. 2. There is borderline concentric left ventricular hypertrophy. 3. Overall left ventricular systolic function is low-normal with, an EF between 50 - 55 %. 4. The right ventricle is normal in size. 5. LA is midly dilated 29-33ml/m2. 6. The right atrial size is normal. 7. There is mild aortic valve sclerosis. 8. Mild mitral regurgitation is present. 9. Mild tricuspid regurgitation present. 10. The aortic root size is normal. 11. Echo free space represents a pericardial fat pad. FLAKE MILLER HELPER: Annalee Carias RDCS
[2020-12-09] MEDS ORDERED: ATROPINE SULFATE 0.1 MG/ML 10ML SYRINGE IV PRN (11:42)
[2020-12-09] MEDS ORDERED: NITROGLYCERIN SL TABS 0.4 MG TAB SUBLINGUAL PRN (11:42)
[2020-12-09] MEDS ORDERED: ZOLPIDEM 5 MG TAB PO PRN (11:42)
[2020-12-09] MEDS ORDERED: RX INFO: IV CONTRAST WAS GIVEN 1 EACH MISC MISCELLANE PRN (11:42)
[2020-12-09] MEDS ORDERED: MAG HYDROX/AL HYDROX/SIMETH 30 ML CUP PO PRN (11:42)
--- NOTE | 2020-12-09 11:42 | P.PRCINT ---
Percutaneous Coronary Int. - Percutaneous Coronary Intervention Percutaneous Coronary Intervention: PROCEDURES PERFORMED: Left heart catheterization, bilateral coronary angiography, PCI circumflex with 2.75 x 15 mm Xience [place] INDICATION: Non-STEMI HISTORY: Patient is a pleasant 80-year-old female with history of rheumatoid arthritis, hypertension who presents secondary to falling and then not being able to get back up. She does have extensive back pain with lower extremity weakness and therefore required dragging herself for an hour or 2 to get help. She denied any rosaline chest pain however did feel weak and mildly short of breath. She is found to have mildly elevated troponins and therefore heart catheterization was recommended. CONSENT:I have discussed the risks, benefits and alternative therapies for the above-mentioned procedure and for both sedation/analgesia as well as necessary blood product administration, if indicated, as they pertain to this patient. The patient has indicated understanding and acceptance of the risks and procedures discussed. PROCEDURE: After the risks, benefits and alternatives of the above mentioned procedure explained in detail with the patient, informed consent was obtained. Patient was taken to the catheterization lab and prepped and draped in usual fashion. 1% lidocaine was used to anesthetize the right radial artery. A 6- [place]is[place] sheath was placed in the right radial artery using modified Seldinger technique. Left coronary angiography was performed with a 5-[place]is[place] JL 3.5 catheter and right coronary angiography was performed with a 5-[place]is[place] JR5 catheter in various views. A 5-[place]is[place] FR5 catheter was inserted into the left ventricle and pressure measurements were obtained. Heparin was given for ACT greater than 250. A 6-[place]isian CLS 3.5 guide was used to engage the left main. A 0.014 BMW wire was advanced into the distal circumflex. Predilation was performed with a 2.25 x 8 mm balloon. A 2.75 x 15 mm Xience [place] was placed in the mid circumflex. Preintervention there is GREYSON-3 flow with a 85% stenosis and postintervention there is GREYSON-3 flow with 0% stenosis and no dissection noted. The right radial sheath was removed and a TR band was placed with hemostasis achieved. The patient tolerated the procedure well. Patient was transported back to the post catheterization holding area in stable condition. Conscious Sedation: Patient was monitored under the direct supervision of vision of myself for conscious sedation using Versed and fentanyl for a total duration of 39 minutes HEMODYNAMICS: Aorta: 144/62 LV: 142/1, LVEDP 7 SELECTIVE CORONARY ARTERIOGRAPHY: LEFT MAIN: The left main is a large caliber vessel which bifurcates into the LAD and circumflex. There is no significant stenosis. LEFT ANTERIOR DESCENDING CORONARY ARTERY: LAD is a large caliber vessel which wraps around to the apex. There is a focal mid 40-50% LAD stenosis and otherwise no significant disease. LEFT CIRCUMFLEX CORONARY ARTERY: Left circumflex is a moderate caliber vessel with a mid 85% stenosis and otherwise only mild luminal irregularities. RIGHT CORONARY ARTERY: The right coronary artery is a large caliber vessel which gives off a PDA and PLV branch and is the dominant vessel. There is a proximal 10% stenosis. FINAL IMPRESSION: 1. Coronary artery disease as described above including 40-50% mid LAD stenosis and 85% circumflex stenosis 2. Status post PCI circumflex with 2.75 x 15 mm Xience [place] 3. Normal left sided filling pressures PLAN: 1. Aggressive risk factor modification per most recent ACC/AHA guidelines. 2. Continue dual antiplatelets for 12 months.
[2020-12-09] MEDS ORDERED: SODIUM CHLORIDE 0.9% 1,000 ML IV SCH (11:45)
--- NOTE | 2020-12-09 11:49 | P.CRDCN ---
History of Present Illness History of present illness: HISTORY OF PRESENTING ILLNESS This is a pleasant 80-year-old female past medical history significant for hypertension, rheumatoid arthritis, chronic back pain she follows with Orthopedics, received steroid injections last in September 2020. She does not follow with a auditor in charge. We have been asked to see in consultation for elevated troponin. Patient is seen and examined at bedside, no acute distress. Patient states that yesterday she was doing yard work, she was on her knees, she was trying to get back up and felt her legs were too weak to get up. She states she had no strength in her legs or back to help her stand up. She states she was crawling to her house to get help, she states this took about 2 hours. She denies any recent chest pain or shortness of breath. Denies any chest pain, lightheadedness, dizziness, syncope, palpitations, shortness of breath, abdominal pain, nausea, vomiting, diaphoresis. Denies headache, numbness or tingling. Denies vision changes. She denies symptoms of orthopnea or PND. She denies history of OR, Stroke, Diabetes, hyperlipidemia. She denies family history of heart disease. She denies tobacco, alcohol or illicit drug use. She states she is compliant with her medication and her BP is controlled outpatient. She denies outpatient workup of a recent stress test or echocardiogram. DIAGNOSTICS EKG reveals sinus rhythm, heart rate 68, T wave inversion in lead III Telemetry tracings indicate sinus mechanism heart rate 6070s. Laboratory reviewed, troponin 0.2, 0.4, 0.4. WBC 6.2, hemoglobin 15.5, platelets 184, sodium 140, potassium 3.8, BUN 30, serum creatinine 0.7, AST 55, ALT 41 Echocardiogram revealed an EF of 5050% LA is mildly dilated, mild mitral regurgitation, mild tricuspid regurgitation. REVIEW OF SYSTEMS At the time of my exam: CONSTITUTIONAL: Denies fever or chills. CARDIOVASCULAR: Denies chest pain, shortness of breath, orthopnea, PND or palpitations. RESPIRATORY: Denies cough. GASTROINTESTINAL: Denies abdominal pain, diarrhea, constipation, nausea or vomiting. MUSCULOSKELETAL: +back pain NEUROLOGIC: +Bilateral lower extremity weakness Denies numbness, tingling, headache ENDOCRINE: Denies fatigue, weight change, polydipsia or polyurina. GENITOURINARY: Denies burning, hematuria or urgency with micturation. HEMATOLOGIC: Denies history of anemia or bleeding. PHYSICAL EXAMINATION Blood pressure 134/57 heart rate 69 afebrile and maintaining oxygen saturation on room air CONSTITUTIONAL: No apparent distress. HEENT: Head is normocephalic. Pupils are equal, round. Sclerae anicteric. Mucous membranes of the mouth are moist. No JVD. No carotid bruit. CHEST EXAMINATION: Lungs are clear to auscultation. No chest wall tenderness is noted on palpation or with deep breathing. HEART EXAMINATION: Regular rate and rhythm. S1, S2 heard. No murmurs, gallops or rub. ABDOMEN: Soft, nontender. Positive bowel sounds. EXTREMITIES: 2+ peripheral pulses, no lower extremity edema and no calf tenderness. SKIN: intact, dry NEUROLOGIC EXAMINATION: Patient is awake, alert and oriented x3. ASSESSMENT NSTEMI Hypertension Rheumatoid arthritis Chronic back pain PLAN Obtain 2D echocardiogram and doppler study to assess cardiac structure and function. Recommend cardiac catheterization I have discussed the risks, benefits and alternative therapies for the above- mentioned procedure and for both sedation/analgesia as well as necessary blood product administration, if indicated, as they pertain to this patient. The patient has indicated understanding and acceptance of the risks and procedures discussed. Questions have been answered appropriately and he is agreeable to move forward with the above-stated procedure. . Further recommendations based on clinical course Thank you kindly for this consultation. Nurse Practitioner note has been reviewed, I agree with a documented findings and plan of care. Patient was seen and examined. Past Medical History Past Medical History: Hypertension, Rheumatoid Arthritis (RA) Additional Past Medical History / Comment(s): hard to walk very far due to back pain, uses a cane History of Any Multi-Drug Resistant Organisms: None Reported Past Surgical History: Back Surgery, Cholecystectomy, Hysterectomy, Tubal Ligation Additional Past Surgical History / Comment(s): has had steroid shot in back Past Anesthesia/Blood Transfusion Reactions: No Reported Reaction Past Psychological History: No Psychological Hx Reported Smoking Status: Never smoker Past Alcohol Use History: Rare Past Drug Use History: None Reported - Past Family History Mother Family Medical History: CVA/TIA Additional Family Medical History / Comment(s): from stroke Father Family Medical History: No Reported History Medications and Allergies Home Medications Medication Instructions Recorded Confirmed Type Naproxen [Naprosyn] 375 mg PO DAILY 08/15/13 12/08/20 History metHOTREXate sodium [Methotrexate] 15 mg PO WE 08/15/13 12/08/20 History Candesartan Cilexetil [Atacand] 32 mg PO DAILY 12/16/17 12/08/20 History Folic Acid 0.4 mg PO DAILY 12/16/17 12/08/20 History Clotrimazole/Betamethasone Dip 1 applic TOPICAL BID 12/08/20 12/08/20 History [Lotrisone Cream] rOPINIRole HCL [Requip] 0.25 mg PO HS 12/08/20 12/08/20 History Allergies Allergy/AdvReac Type Severity Reaction Status Date / Time No Known Allergies Allergy Verified 12/08/20 19:48 Physical Exam Vitals: Vital Signs Temp Pulse Pulse Resp BP BP BP 12/09/20 03:00 98.5 F 59 L 20 137/71 12/08/20 23:15 98 F 69 21 134/57 12/08/20 22:20 97.9 F 71 20 183/78 173/78 12/08/20 21:59 97.9 F 74 18 205/87 12/08/20 21:43 77 18 12/08/20 20:45 75 20 187/85 12/08/20 19:41 75 20 184/86 12/08/20 17:32 98.3 F 76 19 189/67 Pulse Ox 12/09/20 03:00 97 12/08/20 23:15 99 12/08/20 22:20 97 12/08/20 21:59 100 12/08/20 21:43 99 12/08/20 20:45 99 12/08/20 19:41 100 12/08/20 17:32 98 Intake and Output 12/08/20 12/09/20 12/09/20 22:59 06:59 14:59 Other: Voiding Method Toilet Toilet # Voids 1 Weight 81.647 kg 84.5 kg Results 12/09/20 08:14 12/08/20 18:55 Cardiac Enzymes 12/08/20 12/08/20 12/08/20 Range/Units 18:55 18:55 22:52 AST 55 H (14-36) U/L Troponin I 0.285 H* 0.448 H* (0.000-0.034) ng/mL 12/09/20 Range/Units 02:33 AST (14-36) U/L Troponin I 0.444 H* (0.000-0.034) ng/mL CBC 12/08/20 Range/Units 18:55 WBC 8.2 (3.8-10.6) k/uL RBC 4.26 (3.80-5.40) m/uL Hgb 14.1 (11.4-16.0) gm/dL Hct 41.9 (34.0-46.0) % Plt Count 201 (150-450) k/uL Comprehensive Metabolic Panel 12/08/20 Range/Units 18:55 Sodium 140 (137-145) mmol/L Potassium 3.8 (3.5-5.1) mmol/L Chloride 109 H (98-107) mmol/L Carbon Dioxide 22 (22-30) mmol/L BUN 30 H (7-17) mg/dL Creatinine 0.73 (0.52-1.04) mg/dL Glucose 112 H (74-99) mg/dL Calcium 10.5 H (8.4-10.2) mg/dL AST 55 H (14-36) U/L ALT 41 H (4-34) U/L Alkaline Phosphatase 89 (38-126) U/L Total Protein 6.7 (6.3-8.2) g/dL Albumin 4.2 (3.5-5.0) g/dL Current Medications Generic Name Dose Route Start Last Admin Trade Name Freq PRN Reason Stop Dose Admin Aspirin 325 mg 12/09/20 09:00 Aspirin 325 Mg Tab PO DAILY [facility] Clonidine 0.2 mg 12/08/20 23:15 Clonidine Hcl 0.2 Mg Tab PO QID PRN Blood Pressure - High Heparin Sodium (Porcine) 0 unit 12/09/20 01:28 Heparin Sodium 1,000 Un/Ml (10ml Vl) IV PER PROTOCOL PRN Low PTT Protocol Heparin Sodium/Sodium Chloride 250 mls @ 9.798 mls/hr 12/09/20 01:30 12/09/20 01:52 25,000 unit/ Sodium Chloride IV 12 units/kg/hr .Q24H SIMONE 9.798 mls/hr Administration Protocol 12 UNITS/KG/HR Losartan Potassium 150 mg 12/09/20 09:00 Losartan 50 Mg Tab PO DAILY [facility] Nitroglycerin 0.4 mg 12/08/20 20:48 Nitroglycerin Sl Tabs 0.4 Mg Tab SUBLINGUAL Q5M PRN Chest Pain Ropinirole HCl 0.25 mg 12/08/20 23:15 12/09/20 00:34 Ropinirole Hcl 0.25 Mg Tab PO 0.25 mg HS SIMONE Administration Temazepam 7.5 mg 12/08/20 23:15 12/09/20 00:35 Temazepam 7.5 Mg Cap PO 7.5 mg HS PRN Administration Insomnia Intake and Output 12/08/20 12/09/20 12/09/20 22:59 06:59 14:59 Other: Voiding Method Toilet Toilet # Voids 1 Weight 81.647 kg 84.5 kg 12/08/20 18:55 12/08/20 18:55
[2020-12-09] MEDS ORDERED: ACETAMINOPHEN TAB 325 MG TAB PO PRN (12:02)
[2020-12-09] MEDS: ATORVASTATIN 40 MG TAB PO SCH (12:14)
[2020-12-09] MEDS: LOSARTAN 50 MG TAB PO SCH (12:15)
[2020-12-09] MEDS ORDERED: MORPHINE SULFATE 4 MG/ML SYRINGE IVP STA (13:54)
[2020-12-09] MEDS ORDERED: HYDROcodone/APAP 5-325MG 1 EACH TAB PO PRN (13:54)
[2020-12-09 14:00] LABS: Chol/HDL Ratio 2.67
[2020-12-09] MEDS: METOPROLOL SUCCINATE (ER) 25 MG TAB.ER.24H PO SCH (14:47)
[2020-12-09 14:49] LABS: Ferritin 414.4 ng/mL (10.0-291.0)
[2020-12-09 15:34] LABS: Hemoglobin A1C 5.5 % (4.0-6.0)
[2020-12-09 15:38] VITALS: BMI 34.0
--- NOTE | 2020-12-09 16:53 | P.CNOR ---
History of Present Illness - [facility] Consult date: 12/09/20 Consult reason: low back pain History of present illness: The patient is a 80 y/o female with a medical history including rheumatoid arthritis, and hypertension presented to the emergency department last evening a fter an episode of weakness and inability to ambulate while outside of her home. She had to crawl into her house and she was unable to stand. The patient is a known patient to Dr. Rajput and was last seen in October 2020. She is status post laminectomy with Coflex in 2018. She has received two injections by [facility] without much relielf of symptoms. She states her symptoms were actually worse after the injections. The patient does use a cane at home for ambulation. On exam in the ER, her troponins were elevated and cardiology was consulted. She underwent a cardiac cath this morning. She states that her legs are feeling better this afternoon and she is ambulating short distances with assistance. The patient denies pain at this time. Review of Systems Constitutional: Reports weakness, Denies chills, Denies fatigue, Denies fever Cardiovascular: Denies chest pain, Denies shortness of breath Respiratory: Denies cough Gastrointestinal: Denies diarrhea, Denies nausea, Denies vomiting Musculoskeletal: Reports low back pain, Reports muscle weakness Past Medical History Past Medical History: Hypertension, Rheumatoid Arthritis (RA) Additional Past Medical History / Comment(s): hard to walk very far due to back pain, uses a cane History of Any Multi-Drug Resistant Organisms: None Reported Past Surgical History: Back Surgery, Cholecystectomy, Hysterectomy, Tubal Ligation Additional Past Surgical History / Comment(s): has had steroid shot in back Past Anesthesia/Blood Transfusion Reactions: No Reported Reaction Past Psychological History: No Psychological Hx Reported Smoking Status: Never smoker Past Alcohol Use History: Rare Past Drug Use History: None Reported - Past Family History Mother Family Medical History: CVA/TIA Additional Family Medical History / Comment(s): from stroke Father Family Medical History: No Reported History Medications and Allergies Home Medications Medication Instructions Recorded Confirmed Type Naproxen [Naprosyn] 375 mg PO DAILY 08/15/13 12/08/20 History metHOTREXate sodium [Methotrexate] 15 mg PO WE 08/15/13 12/08/20 History Candesartan Cilexetil [Atacand] 32 mg PO DAILY 12/16/17 12/08/20 History Folic Acid 0.4 mg PO DAILY 12/16/17 12/08/20 History Clotrimazole/Betamethasone Dip 1 applic TOPICAL BID 12/08/20 12/08/20 History [Lotrisone Cream] rOPINIRole HCL [Requip] 0.25 mg PO HS 12/08/20 12/08/20 History Aspirin 81 mg PO DAILY tab 12/09/20 Rx Ticagrelor [Brilinta] 90 mg PO BID 30 Days #60 tab 12/09/20 Rx Allergies Allergy/AdvReac Type Severity Reaction Status Date / Time No Known Allergies Allergy Verified 12/08/20 19:48 Physical Examination The patient is a 80 y/o female in no acute distress. She is alert and oriented x3. Exam of the back reveals a well-healed wound. No dimples, patches, lacerations, or abrasions. Non-tender to palpation over the midline. There is some paravertebral spasm bilaterally. Motion of the lumbar spine was not tested at this time. Calves are soft and nontender. There is subjective numbness to the left lower leg compared to the right. Right Lower extremity: Motor strength of the lower extremity is 4/5 including dorsiflexion, plantar flexion, extensor hallucis longus, hip flexion, knee extension abduction and adduction. Left Lower extremity: Motor strength of the lower extremity is 2/5 including dorsiflexion, plantar flexion, extensor hallucis longus, hip flexion, knee extension abduction and adduction.. Results Last MRI in the office was in June 2020 was reviewed. - Labs Labs: Abnormal Lab Results - Last 24 Hours (Table) 12/08/20 12/08/20 12/08/20 Range/Units 18:55 18:55 18:55 MCV (80.0-100.0) fL APTT (22.0-30.0) sec Chloride 109 H (98-107) mmol/L BUN 30 H (7-17) mg/dL Glucose 112 H (74-99) mg/dL Calcium 10.5 H (8.4-10.2) mg/dL Ferritin (10.0-291.0) ng/mL AST 55 H (14-36) U/L ALT 41 H (4-34) U/L Troponin I 0.285 H* (0.000-0.034) ng/mL Urine Protein 1+ H (Negative) Urine Ketones Trace H (Negative) Ur Leukocyte Esterase Trace H (Negative) Urine Mucus Occasional H (None) /hpf 12/08/20 12/09/20 12/09/20 Range/Units 22:52 02:33 08:14 MCV (80.0-100.0) fL APTT (22.0-30.0) sec Chloride (98-107) mmol/L BUN (7-17) mg/dL Glucose (74-99) mg/dL Calcium (8.4-10.2) mg/dL Ferritin 414.4 H (10.0-291.0) ng/mL AST (14-36) U/L ALT (4-34) U/L Troponin I 0.448 H* 0.444 H* (0.000-0.034) ng/mL Urine Protein (Negative) Urine Ketones (Negative) Ur Leukocyte Esterase (Negative) Urine Mucus (None) /hpf 12/09/20 12/09/20 Range/Units 08:14 08:14 MCV 100.4 H (80.0-100.0) fL APTT 55.8 H (22.0-30.0) sec Chloride (98-107) mmol/L BUN (7-17) mg/dL Glucose (74-99) mg/dL Calcium (8.4-10.2) mg/dL Ferritin (10.0-291.0) ng/mL AST (14-36) U/L ALT (4-34) U/L Troponin I (0.000-0.034) ng/mL Urine Protein (Negative) Urine Ketones (Negative) Ur Leukocyte Esterase (Negative) Urine Mucus (None) /hpf H & H 12/08/20 12/09/20 Range/Units 18:55 08:14 Hgb 14.1 13.5 (11.4-16.0) gm/dL Hct 41.9 40.7 (34.0-46.0) % Coagulation 12/09/20 Range/Units 08:14 INR 1.0 (<1.2) Result Diagrams: 12/09/20 08:14 12/08/20 18:55 Assessment and Plan (1) Low back pain Current Visit: Yes Status: Acute Code(s): M54.5 - LOW BACK PAIN SNOMED Code(s): 318918016 (2) Elevated troponin Current Visit: Yes Status: Acute Code(s): R77.8 - OTHER SPECIFIED ABNORMALITIES OF PLASMA PROTEINS SNOMED Code(s): 362573577 (3) Weakness Current Visit: Yes Status: Acute Code(s): R53.1 - WEAKNESS SNOMED Code(s): 53032996 (4) Spinal stenosis Current Visit: No Status: Acute Code(s): M48.00 - SPINAL STENOSIS, SITE UNSPECIFIED SNOMED Code(s): 39475175 Plan: The clinical findings were discussed with the patient. The case was discussed at length with Dr. Rajput. No surgical intervention is planned at this time. An LSO brace has been ordered and is currently at the bedside. The patient states the brace fits well. Physical therapy has been ordered. She will continue wi th the brace and physical therapy at this time. She may discharge home when medically stable from an orthopedic spine standpoint. She will follow up with Dr. Rajput in a few weeks.
[2020-12-09] MEDS: TICAGRELOR 90 MG TAB PO SCH (20:39)
[2020-12-10 06:35] VITALS: RESP 18
[2020-12-10] MEDS ORDERED: ASPIRIN 81 MG PO SCH (09:00)
[2020-12-10 09:12] LABS: Basophils % (A) 1 %; Eosinophils % (A) 1 %; HCT 37.7 % (34.0-46.0); Lymphocytes # (A) 1.1 k/uL (1.0-4.8); Lymphocytes % (A) 27 %; MCH 34.3 pg (25.0-35.0); MCHC 34.4 g/dL (31.0-37.0); MCV 99.8 fL (80.0-100.0); Macrocytosis Slight; Mean Platelet Volume 8.4; Monocytes # (A) 0.2 k/uL (0-1.0); Monocytes % (A) 4 %; Neutrophils # (A) 2.7 k/uL (1.3-7.7); Neutrophils % (A) 65 %; Platelet Count 181 k/uL (150-450); RBC 3.78 m/uL (3.80-5.40); RDW 13.9 % (11.5-15.5); WBC 4.1 k/uL (3.8-10.6)
[2020-12-10 09:18] LABS: Prothrombin Time 10.5 sec (9.0-12.0)
[2020-12-10] MEDS: TICAGRELOR 90 MG TAB PO SCH (09:34)
[2020-12-10] MEDS: ATORVASTATIN 40 MG TAB PO SCH (09:34)
[2020-12-10] MEDS: LOSARTAN 50 MG TAB PO SCH (09:34)
[2020-12-10] MEDS: METOPROLOL SUCCINATE (ER) 25 MG TAB.ER.24H PO SCH (09:35)
--- NOTE | 2020-12-10 10:54 | P.PN ---
Subjective Progress Note Date: 12/10/20 Principal diagnosis: Leg weakness The patient is a 80 y/o female with a medical history including rheumatoid arthritis, and hypertension presented to the emergency department last evening after an episode of weakness and inability to ambulate while outside of her home. She had to crawl into her house and she was unable to stand. The patient is a known patient to Dr. Rajput and was last seen in October 2020. She is status post laminectomy with Coflex in 2018. She has received two injections by [facility] without much relielf of symptoms. She states her symptoms were actually worse after the injections. The patient does use a cane at home for ambulation. On exam in the ER, her troponins were elevated and cardiology was consulted. She underwent a cardiac cath this morning. She states that her legs are feeling better this afternoon and she is ambulating short distances with assistance. The patient denies pain at this time. 12/10/2020: The patient states she is feeling better. She is ambulating without much difficulty. She states she might go home today. No new complaints. Objective - Vital Signs Vital signs: Vital Signs Temp 97.4 F L 12/10/20 08:00 Pulse 64 12/10/20 08:00 Resp 18 12/10/20 08:00 BP 176/74 12/10/20 08:00 Pulse Ox 98 12/10/20 08:00 Intake & Output 12/09/20 12/10/20 12/10/20 18:59 06:59 18:59 Intake Total 1228 420 Output Total 500 Balance 728 420 Weight 84.5 kg 62 kg Intake: IV 160 0.9 10 Intake, IV Titration 468 Amount Heparin Sod,Pork in 0.45% 18 NaCl 25,000 unit In 0.45 % NaCl 1 250ml.bag @ 12 UNITS/KG/HR 9.798 mls/hr IV .Q24H [facility] Rx#: [id number] Sodium Chloride 0.9% 1, 450 000 ml @ 75 mls/hr IV . [id number] [facility] Rx#:[id number] Oral 600 420 Output: Urine 500 Other: Voiding Method Toilet Toilet Toilet # Voids 4 1 1 - Exam The patient is a 80 y/o female in no acute distress. She is alert and oriented x3. Exam of the back reveals a well-healed wound. No dimples, patches, lacerations, or abrasions. Non-tender to palpation over the midline. There is some paravertebral spasm bilaterally. Motion of the lumbar spine was not tested at this time. Calves are soft and nontender. There is subjective numbness to t he left lower leg compared to the right. She was able to get herself to the side of the bed today. Right Lower extremity: Motor strength of the lower extremity is 4/5 including dorsiflexion, plantar flexion, extensor hallucis longus, hip flexion, knee extension abduction and adduction. Left Lower extremity: Motor strength of the lower extremity is 2/5 including dorsiflexion, plantar flexion, extensor hallucis longus, hip flexion, knee extension abduction and adduction.. - Labs CBC & Chem 7: 12/10/20 08:46 12/10/20 08:46 Labs: Abnormal Lab Results - Last 24 Hours (Table) 12/09/20 12/10/20 Range/Units 08:14 08:46 RBC 3.78 L (3.80-5.40) m/uL Ferritin 414.4 H (10.0-291.0) ng/mL Assessment and Plan (1) Low back pain Current Visit: Yes Status: Acute Code(s): M54.5 - LOW BACK PAIN SNOMED Code(s): 956397225 (2) Elevated troponin Current Visit: Yes Status: Acute Code(s): R77.8 - OTHER SPECIFIED ABNORMALITIES OF PLASMA PROTEINS SNOMED Code(s): 474101443 (3) Weakness Current Visit: Yes Status: Acute Code(s): R53.1 - WEAKNESS SNOMED Code(s): 56211514 (4) Spinal stenosis Current Visit: No Status: Acute Code(s): M48.00 - SPINAL STENOSIS, SITE UNSPECIFIED SNOMED Code(s): 08885859 Plan: The clinical findings were discussed with the patient. The case was discussed at length with Dr. Rajput. No surgical intervention is planned at this time. An LSO brace has been ordered and is currently at the bedside. The patient states the brace fits well. Physical therapy has been ordered. She will continue with the brace and physical therapy at this time. She may discharge home when medically stable from an orthopedic spine standpoint. She will follow up with Dr. Rajput in a couple weeks if needed.
[2020-12-10 12:53] VITALS: BP 180/72; PULSE 66; TEMP 97.6
--- NOTE | 2020-12-10 16:03 | P.PN ---
Subjective This is a pleasant 80-year-old female past medical history significant for hypertension, rheumatoid arthritis, chronic back pain she follows with Or thopedics, received steroid injections last in September 2020. She does not follow with a x ray developer. We have been asked to see in consultation for elevated troponin. Patient is seen and examined at bedside, no acute distress. Patient states that yesterday she was doing yard work, she was on her knees, she was trying to get back up and felt her legs were too weak to get up. She states she had no strength in her legs or back to help her stand up. She states she was crawling to her house to get help, she states this took about 2 hours. She denies any recent chest pain or shortness of breath. Denies any chest pain, lightheadedness, dizziness, syncope, palpitations, shortness of breath, abdominal pain, nausea, vomiting, diaphoresis. Denies headache, numbness or tingling. Denies vision changes. She denies symptoms of orthopnea or PND. She denies history of CO, Stroke, Diabetes, hyperlipidemia. She denies family history of heart disease. She denies tobacco, alcohol or illicit drug use. She states she is compliant with her medication and her BP is controlled outpatient. She denies outpatient workup of a recent stress test or echocardiogram. 12/10 Patient seen and examined. Patient denies any chest pain or pressure. She underwent heart catheterization which showed moderate disease of the LAD and obstructive disease in the circumflex with successful PCI. Her right radial site appears good without any hematoma. Patient has been up walking with a walker without any difficulty. Blood pressure remains elevated and metoprolol will be increased. PHYSICAL EXAMINATION Vital signs reviewed CONSTITUTIONAL: No apparent distress. HEENT: Head is normocephalic. Pupils are equal, round. Sclerae anicteric. Mucous membranes of the mouth are moist. No JVD. No carotid bruit. CHEST EXAMINATION: Lungs are clear to auscultation. No chest wall tenderness is noted on palpation or with deep breathing. HEART EXAMINATION: Regular rate and rhythm. S1, S2 heard. No murmurs, gallops or rub. ABDOMEN: Soft, nontender. Positive bowel sounds. EXTREMITIES: 2+ peripheral pulses, no lower extremity edema and no calf tenderness. SKIN: intact, dry NEUROLOGIC EXAMINATION: Patient is awake, alert and oriented x3. ASSESSMENT NSTEMI Hypertension Rheumatoid arthritis Chronic back pain Coronary artery disease status post PCI of circumflex 12/09 PLAN Continue with dual antiplatelets for 12 months. Continue with beta gwyn and we will increase given elevated blood pressures. Continue with home ARB. Likely will need additional pressure regimen at home. Appears stable for discharge from a cardiology standpoint. 'F/u in the office in 1 week. Objective - Vital Signs Vital signs: Vital Signs Temp 97.6 F 12/10/20 12:00 Pulse 66 12/10/20 14:00 Resp 18 12/10/20 14:00 BP 180/72 12/10/20 12:00 Pulse Ox 100 12/10/20 12:00 Intake & Output 12/09/20 12/10/20 12/10/20 18:59 06:59 18:59 Intake Total 1228 960 Output Total 500 Balance 728 960 Weight 84.5 kg 62 kg Intake: IV 160 0.9 10 Intake, IV Titration 468 Amount Heparin Sod,Pork in 0.45% 18 NaCl 25,000 unit In 0.45 % NaCl 1 250ml.bag @ 12 UNITS/KG/HR 9.798 mls/hr IV .Q24H [facility] Rx#: [id number] Sodium Chloride 0.9% 1, 450 000 ml @ 75 mls/hr IV . [id number] [facility] Rx#:[id number] Oral 600 960 Output: Urine 500 Other: Voiding Method Toilet Toilet Toilet # Voids 4 1 1 - Labs CBC & Chem 7: 12/10/20 08:46 12/10/20 08:46 Labs: Abnormal Lab Results - Last 24 Hours (Table) 12/10/20 Range/Units 08:46 RBC 3.78 L (3.80-5.40) m/uL
--- NOTE | 2020-12-10 16:11 | P.DS ---
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 She presented to the emergency department on 12/08/20 with a chief complaint of bilateral lower extremity weakness. Patient reports she was doing some yard work and after about 5 minutes she felt very weak and had to sit down. Patient reports she was unable to stand up again on her own. She states her legs are just too weak. Patient does report a history of chronic lower back pain with previous lumbar fusion as reported above, however she states she is typically able to get up on her own, but yesterday she had to crawl back to the house. She was seen and fully evaluated in the emergency department. An EKG was completed showing normal sinus rhythm at 68 bpm with T-wave inversion in lead III which was not present on previous EKG completed 07/05/20. Labs drawn revealing an elevated troponin of 0.285, 0.448, and 0.444. CBC was unremarkable and BMP revealing prerenal azotemia with BUN of 30. Patient was admitted under our services with consultation to cardiology. She was given aspirin and atorvastatin and started on heparin infusion. Echocardiogram revealing an EF of 50-55% with no significant valvular abnormalities. Patient was taken for cardiac cath where she was found to have an 85% stenosis of circumflex resulting in PCI stent placement. Patient started on Brilinta and aspirin and cardiology recommending patient to continue dual antiplatelet therapy for 1 year. She was also seen and evaluated by orthospine surgery who recommended LSO brace in which patient was fitted for and was delivered to bedside. Patient monitored overnight status post stent placement and is currently stable for discharge home. Patient being discharged home with [facility] services and to receive PT/OT. During hospitalization patient also had uncontrolled hypertension and was started on additional medication metoprolol succinate 25 mg daily. Patient being discharged home on aspirin, went, atorvastatin, metoprolol. Follow up outpatient with PCP, cardiology, and hazardous waste management specialist. Physical exam: Patient seen and fully evaluated at the bedside this morning. Patient reports feeling great and ready to go home. Patient denies having any headache, lightheadedness, dizziness, chest pain, palpitations, shortness of breath, or dyspnea with exertion. Cardiac cath site to right wrist with no noted bleeding or hematoma. Vital signs reviewed and stable. General: Nontoxic, no distress and appears stated age. Derm: Skin warm and dry, normal coloration for ethnicity. Head: Atraumatic, normocephalic and symmetric. Eyes: EOMs intact, no lid lag, and anicteric sclera Mouth: no lip lesions, mucus membranes moist Cardiovascular: regular rate and rhythm with normal S1S2, no murmur, positive posterior tibial pulses bilaterally, and cap refill < 2 seconds. Lungs: Respirations even, regular, and unlabored on room air. Lungs CTA bilaterally, no rhonchi, no rales, no wheezing, and no accessory muscle usage. Abdominal: soft, nontender to palpation, no guarding, no appreciable organomegaly Ext: ROM intact. No gross muscle atrophy, no edema, no contractures Neuro: Speech clear, face symmetrical and CN II-XII grossly intact with no noted focal neuro deficits Psych: Alert and oriented to person, place, time, and situation. Appropriate and pleasant affect. A total of 45 minutes of time were spent preparing this complex discharge summary. Patient Condition at Discharge: Stable Plan - Discharge Summary Discharge Rx Participant: No New Discharge Prescriptions: New Aspirin 81 mg PO DAILY 30 Days #30 tab Ticagrelor [Brilinta] 90 mg PO BID 30 Days #60 tab Atorvastatin [Lipitor] 40 mg PO DAILY 30 Days #30 tab Metoprolol Succinate (ER) [Toprol XL] 25 mg PO DAILY 30 Days #30 tablet Continue metHOTREXate sodium [Methotrexate] 15 mg PO WE Folic Acid 0.4 mg PO DAILY Candesartan Cilexetil [Atacand] 32 mg PO DAILY rOPINIRole HCL [Requip] 0.25 mg PO HS Clotrimazole/Betamethasone Dip [Lotrisone Cream] 1 applic TOPICAL BID Discontinued Naproxen [Naprosyn] 375 mg PO DAILY Discharge Medication List metHOTREXate sodium [Methotrexate] 15 mg PO WE 08/15/13 [History] Candesartan Cilexetil [Atacand] 32 mg PO DAILY 12/16/17 [History] Folic Acid 0.4 mg PO DAILY 12/16/17 [History] Clotrimazole/Betamethasone Dip [Lotrisone Cream] 1 applic TOPICAL BID 12/08/20 [History] rOPINIRole HCL [Requip] 0.25 mg PO HS 12/08/20 [History] Aspirin 81 mg PO DAILY 30 Days #30 tab 12/10/20 [Rx] Atorvastatin [Lipitor] 40 mg PO DAILY 30 Days #30 tab 12/10/20 [Rx] Metoprolol Succinate (ER) [Toprol XL] 25 mg PO DAILY 30 Days #30 tablet 12/10/20 [Rx] Ticagrelor [Brilinta] 90 mg PO BID 30 Days #60 tab 12/10/20 [Rx] Follow up Appointment(s)/Referral(s): Racquel Bennett MD [Primary Care Provider] - 1-2 days (Pt to call to make own appt- office closed) Niki Rajput DO [Doctor of Osteopathic Medicine] - 1 Week Miles Shi DO [STAFF PHYSICIAN] - 1 Week [facility], [NON-STAFF] - [facility] [NON-STAFF] - Activity/Diet/Wound Care/Special Instructions: Brillinta copay is $43.50 Discharge Disposition: HOME WITH HOME HEALTH SERVICES <MakedaElaine A - Last Filed: 12/10/20 17:18> Providers Date of admission: 12/09/20 12:58 Attending physician: Isabell Tompkins MD Consults: 12/08/20 20:49 Consult Physician Urgent Consulting Provider: Ammon Zhong Consult Reason/Comments: Elevated troponin Do you want consulting provider notified?: Yes 12/09/20 02:29 Consult Physician Routine Consulting Provider: Niki Rajput Consult Reason/Comments: known to doc, lumbar fusion , lower extremity weakness Do you want consulting provider notified?: Yes, Notify in am 12/09/20 11:43 Consult Physician Routine Consulting Provider: [facility] Consult Reason/Comments: Post Interventional patient Do you want consulting provider notified?: Already Contacted Primary care physician: Racquel Bennett MD Hospital Course: Patient seen and examined independently. Patient was also seen by Gui Herman NP and case was discussed. I am in agreement with subjective, physical exam, assessment and plan as written above and amended below. No chest pain, no shrotness of breath, no nusea. All questions answered. Patient will obtain blood pressure cuff General: non toxic, no distress, appears at stated age Derm: warm, dry Head: atraumatic, normocephalic, symmetric Eyes: EOMI, no lid lag, anicteric sclera Mouth: no lip lesion, mucus membranes moist Cardiovascular: S1S2 reg, no murmur, positive posterior tibial pulse bilateral, Lungs:Decreased bs bilateral, no rhonchi, no rales , no accessory muscle use Abdominal: soft, nontender to palpation, no guarding, no appreciable organomegaly Ext: no gross muscle atrophy, no edema, no contractures Neuro: CN II-XI grossly intact, no focal neuro deficits Psych: Alert, oriented, appropriate affect
== END 2020-12-10 16:44 | disposition home health service (06) | DRG 247 ==
LOC: EC 17:31 → 3SCARD 21:48 → OBSVTOIN 12-09 12:58
PROVIDERS: ADMIT Internal Medicine; ATTEND Internal Medicine
PROC: B2111ZZ Fluoroscopy of Multiple Coronary Arteries using Low Osmolar Contrast (ICD-10-PCS; 2020-12-09)
PROC: 027034Z Dilation of Coronary Artery, One Artery with Drug-eluting Intraluminal Device, Percutaneous Approach (ICD-10-PCS; principal; 2020-12-09 13:50)
PROC: 4A023N7 Measurement of Cardiac Sampling and Pressure, Left Heart, Percutaneous Approach (ICD-10-PCS; 2020-12-09 13:50)
DX: I21.4 Non-ST elevation (NSTEMI) myocardial infarction (principal); G25.81 Restless legs syndrome; G89.29 Other chronic pain; I10 Essential (primary) hypertension; I25.10 Atherosclerotic heart disease of native coronary artery without angina pectoris; M06.9 Rheumatoid arthritis, unspecified; M48.00 Spinal stenosis, site unspecified; Z98.61 Coronary angioplasty status; Z98.1 Arthrodesis status; Z79.02 Long term (current) use of antithrombotics/antiplatelets; Z79.82 Long term (current) use of aspirin; Z82.3 Family history of stroke; Z90.710 Acquired absence of both cervix and uterus; R53.1 Weakness; M54.5 Low back pain
CPT/HCPCS: 36415; 80053; 80061; 81001; 82306; 82565; 82607; 82728; 83036; 84484; 85025; 85610; 85730; 93005; 93306; 93458; 96360; 99285

== ENCOUNTER 2021-01-04 10:31 | Observation (INO) | payer MEDICARE, BC ==
[2021-01-04] MEDS ORDERED: SODIUM CHLORIDE 0.9% 500 ML 500 ML IV STA (11:37)
--- NOTE | 2021-01-04 12:08 | ED ---
Arrhythmia/Palpitations HPI - General Chief Complaint: Arrhythmia/Palpitations Stated Complaint: Heart racing Time Seen by Provider: 01/04/21 11:08 Source: patient, RN notes reviewed, old records reviewed Mode of arrival: wheelchair Limitations: no limitations - History of Present Illness Initial Comments: 80-year-old female, well-appearing alert and oriented 4, presents to the emergency room with complaints of having a rapid heart rate at home. Patient states that she felt fine however the home care nurse assessed her heart rate and told her it was elevated and to come to the emergency room. On arrival to the emergency room her EKG showed a ventricular rate of 142. She denies any shortness of breath or chest pain. She states that she had a stent placed in November by Dr. Shi and was put on medications including metoprolol, Brilinta and aspirin. She states that until the stent was placed she was on on no medications other than her rheumatoid arthritis medication, methotrexate. MD Complaint: rapid heart beat -: days(s) (1) Arrhythmia History: other (brilinta and aspirin) Associated Symptoms: denies other symptoms - Related Data Home Medications Medication Instructions Recorded Confirmed metHOTREXate sodium [Methotrexate] 15 mg PO WE 08/15/13 01/04/21 Candesartan Cilexetil [Atacand] 32 mg PO DAILY 12/16/17 01/04/21 Folic Acid 0.4 mg PO DAILY 12/16/17 01/04/21 Clotrimazole/Betamethasone Dip 1 applic TOPICAL BID PRN 12/08/20 01/04/21 [Lotrisone Cream] rOPINIRole HCL [Requip] 0.25 mg PO HS 12/08/20 01/04/21 Ezetimibe [Zetia] 10 mg PO DAILY 01/04/21 01/04/21 Famotidine [Pepcid] 20 mg PO BID 01/04/21 01/04/21 predniSONE See Taper PO BID 01/04/21 01/04/21 traMADol HCL [Ultram] 50 mg PO TID PRN 01/04/21 01/04/21 Previous Rx's Medication Instructions Recorded Aspirin 81 mg PO DAILY 30 Days #30 tab 12/10/20 Metoprolol Succinate (ER) [Toprol 25 mg PO DAILY 30 Days #30 tablet 12/10/20 XL] Ticagrelor [Brilinta] 90 mg PO BID 30 Days #60 tab 12/10/20 Allergies Allergy/AdvReac Type Severity Reaction Status Date / Time No Known Allergies Allergy Verified 01/04/21 13:50 Review of Systems ROS Statement: Those systems with pertinent positive or pertinent negative responses have been documented in the HPI. ROS Other: All systems not noted in ROS Statement are negative. Past Medical History Past Medical History: Hypertension, Rheumatoid Arthritis (RA) Additional Past Medical History / Comment(s): hard to walk very far due to back pain, uses a cane History of Any Multi-Drug Resistant Organisms: None Reported Past Surgical History: Back Surgery, Cholecystectomy, Hysterectomy, Tubal Ligation Additional Past Surgical History / Comment(s): has had steroid shot in back Past Anesthesia/Blood Transfusion Reactions: No Reported Reaction Past Psychological History: No Psychological Hx Reported Smoking Status: Never smoker Past Alcohol Use History: Rare Past Drug Use History: None Reported - Past Family History Mother Family Medical History: CVA/TIA Additional Family Medical History / Comment(s): from stroke Father Family Medical History: No Reported History General Exam Limitations: no limitations General appearance: alert, in no apparent distress Head exam: Present: atraumatic, normocephalic, normal inspection Eye exam: Present: normal appearance, PERRL, EOMI. Absent: scleral icterus, conjunctival injection, periorbital swelling ENT exam: Present: normal exam, mucous membranes moist Neck exam: Present: normal inspection, full ROM. Absent: tenderness, menin gismus, lymphadenopathy Respiratory exam: Present: normal lung sounds bilaterally. Absent: respiratory distress, wheezes, rales, rhonchi, stridor Cardiovascular Exam: Present: regular rate, normal rhythm, normal heart sounds. Absent: systolic murmur, diastolic murmur, rubs, gallop, clicks, JVD GI/Abdominal exam: Present: soft, normal bowel sounds. Absent: distended, tenderness, guarding, rebound, rigid Extremities exam: Present: normal inspection, full ROM, normal capillary refill, pedal edema (Trace). Absent: tenderness, joint swelling, calf tenderness Back exam: Present: normal inspection Neurological exam: Present: alert, oriented X3 Psychiatric exam: Present: normal affect, normal mood Skin exam: Present: warm, dry, intact, normal color. Absent: rash Course Vital Signs 01/04/21 01/04/2121 10:40 14:02 14:14 Temperature 98.8 F Pulse Rate 98 86 Respiratory 16 24 Rate Blood Pressure 140/91 104/51 O2 Sat by Pulse 96 90 L 85 L Oximetry 01/04/21 01/04/21 14:23 15:49 Temperature Pulse Rate 66 62 Respiratory 18 18 Rate Blood Pressure 155/68 153/70 O2 Sat by Pulse 99 99 Oximetry EKG Findings - EKG Comments: EKG Findings:: Initial EKG at 1052 shows a sinus tachycardia with a ventricular rate of 142, MI interval 0.144, QRS of 0.84, QTC 0.443. This EKG was reviewed by Dr. Davis. Second EKG done at 1156 shows a normal sinus rhythm with a ventricular rate of 64, MI interval 0.174, QRS 0.98, QTc 0.396 Medical Decision Making - Medical Decision Making Chest x-ray shows no pleural effusion focal pneumonia. No acute cardiopulmonary process. Troponin is elevated at 0.042, on December 092020 after her stent placement her troponin was 0.444. Due to the elevated heart rate and palpitations along with an elevated troponin patient will be placed in o bservation for serial troponins and evaluation of palpitations Patient has remained pain-free. Case discussed with Dr. Davis - Lab Data Result diagrams: 01/04/21 11:48 01/04/21 11:48 Lab Results 01/04/21 01/04/21 01/04/21 Range/Units 11:48 11:48 11:48 WBC 11.7 H (3.8-10.6) k/uL RBC 4.45 (3.80-5.40) m/uL Hgb 14.8 (11.4-16.0) gm/dL Hct 44.5 (34.0-46.0) % MCV 100.0 (80.0-100.0) fL MCH 33.3 (25.0-35.0) pg MCHC 33.3 (31.0-37.0) g/dL RDW 13.7 (11.5-15.5) % Plt Count 239 (150-450) k/uL MPV 7.9 Neutrophils % 70 % Lymphocytes % 22 % Monocytes % 6 % Eosinophils % 0 % Basophils % 0 % Neutrophils # 8.2 H (1.3-7.7) k/uL Lymphocytes # 2.5 (1.0-4.8) k/uL Monocytes # 0.7 (0-1.0) k/uL Eosinophils # 0.0 (0-0.7) k/uL Basophils # 0.0 (0-0.2) k/uL Macrocytosis Slight PT 10.1 (9.0-12.0) sec INR 0.9 (<1.2) APTT 21.2 L (22.0-30.0) sec Sodium 139 (137-145) mmol/L Potassium 4.5 (3.5-5.1) mmol/L Chloride 110 H (98-107) mmol/L Carbon Dioxide 21 L (22-30) mmol/L Anion Gap 8 mmol/L BUN 23 H (7-17) mg/dL Creatinine 0.70 (0.52-1.04) mg/dL Est GFR (CKD-EPI)AfAm >90 (>60 ml/min/1.73 sqM) Est GFR (CKD-EPI)NonAf 83 (>60 ml/min/1.73 sqM) Glucose 116 H (74-99) mg/dL Calcium 10.2 (8.4-10.2) mg/dL Magnesium 2.4 H (1.6-2.3) mg/dL Total Bilirubin 0.7 (0.2-1.3) mg/dL AST 48 H (14-36) U/L ALT 53 H (4-34) U/L Alkaline Phosphatase 64 (38-126) U/L Troponin I (0.000-0.034) ng/mL Total Protein 7.0 (6.3-8.2) g/dL Albumin 4.1 (3.5-5.0) g/dL Coronavirus (PCR) (Not Detectd) 01/04/21 01/04/21 Range/Units 11:48 14:26 WBC (3.8-10.6) k/uL RBC (3.80-5.40) m/uL Hgb (11.4-16.0) gm/dL Hct (34.0-46.0) % MCV (80.0-100.0) fL MCH (25.0-35.0) pg MCHC (31.0-37.0) g/dL RDW (11.5-15.5) % Plt Count (150-450) k/uL MPV Neutrophils % % Lymphocytes % % Monocytes % % Eosinophils % % Basophils % % Neutrophils # (1.3-7.7) k/uL Lymphocytes # (1.0-4.8) k/uL Monocytes # (0-1.0) k/uL Eosinophils # (0-0.7) k/uL Basophils # (0-0.2) k/uL Macrocytosis PT (9.0-12.0) sec INR (<1.2) APTT (22.0-30.0) sec Sodium (137-145) mmol/L Potassium (3.5-5.1) mmol/L Chloride (98-107) mmol/L Carbon Dioxide (22-30) mmol/L Anion Gap mmol/L BUN (7-17) mg/dL Creatinine (0.52-1.04) mg/dL Est GFR (CKD-EPI)AfAm (>60 ml/min/1.73 sqM) Est GFR (CKD-EPI)NonAf (>60 ml/min/1.73 sqM) Glucose (74-99) mg/dL Calcium (8.4-10.2) mg/dL Magnesium (1.6-2.3) mg/dL Total Bilirubin (0.2-1.3) mg/dL AST (14-36) U/L ALT (4-34) U/L Alkaline Phosphatase (38-126) U/L Troponin I 0.042 H* (0.000-0.034) ng/mL Total Protein (6.3-8.2) g/dL Albumin (3.5-5.0) g/dL Coronavirus (PCR) Not Detected (Not Detectd) Disposition Clinical Impression: Palpitations Disposition: ADMITTED IP TO THIS [facility] Decision Date: 01/04/21 Decision Time: 13:31
[2021-01-04 12:15] LABS: Basophils % (A) 0 %; Eosinophils % (A) 0 %; HCT 44.5 % (34.0-46.0); HGB 14.8 gm/dL (11.4-16.0); Lymphocytes # (A) 2.5 k/uL (1.0-4.8); Lymphocytes % (A) 22 %; MCH 33.3 pg (25.0-35.0); MCHC 33.3 g/dL (31.0-37.0); Macrocytosis Slight; Mean Platelet Volume 7.9; Monocytes # (A) 0.7 k/uL (0-1.0); Monocytes % (A) 6 %; Neutrophils # (A) 8.2 k/uL (1.3-7.7); Neutrophils % (A) 70 %; Platelet Count 239 k/uL (150-450); RBC 4.45 m/uL (3.80-5.40); RDW 13.7 % (11.5-15.5); WBC 11.7 k/uL (3.8-10.6)
[2021-01-04 12:22] LABS: ALT 53 U/L (4-34); AST 48 U/L (14-36); African American GFR (CKD) >90 (>60 ml/min/1.73 sqM); Albumin 4.1 g/dL (3.5-5.0); Alkaline Phosphatase 64 U/L (38-126); Anion Gap 8 mmol/L; Blood Urea Nitrogen 23 mg/dL (7-17); Calcium 10.2 mg/dL (8.4-10.2); Carbon Dioxide 21 mmol/L (22-30); Chloride 110 mmol/L (98-107); Glucose 116 mg/dL (74-99); Magnesium 2.4 mg/dL (1.6-2.3); Non-African American GFR(CKD) 83 (>60 ml/min/1.73 sqM); Sodium 139 mmol/L (137-145); Total Bilirubin 0.7 mg/dL (0.2-1.3)
[2021-01-04 12:32] LABS: INR 0.9 (<1.2); Prothrombin Time 10.1 sec (9.0-12.0)
--- NOTE | 2021-01-04 12:42 | XR ---
EXAMINATION TYPE: XR chest 2V DATE OF EXAM: 01/04/2021 COMPARISON: NONE TECHNIQUE: PA and lateral views submitted. HISTORY: Dysrhythmia FINDINGS: The lungs are clear and there is no pneumothorax, pleural effusion, or focal pneumonia. Arthropathy of the AC joints. Heart size normal. No overt failure. Degenerative changes of the spine. Surgical c lips in the abdomen. IMPRESSION: 1. No acute process.
[2021-01-04 12:44] LABS: Potassium 4.5 mmol/L (3.5-5.1)
[2021-01-04 12:49] LABS: Partial Thromboplastin Time 21.2 sec (22.0-30.0)
[2021-01-04] MEDS ORDERED: NALOXONE 0.4 MG/ML 1 ML VIAL IV PRN (13:28)
--- NOTE | 2021-01-04 14:54 | P.HPIM ---
<Gui Herman - Last Filed: 01/04/21 14:17> History of Present Illness H&P Date: 01/04/21 History of Presenting Illness: Patient is a 80-year-old female with a past medical history of CAD with stents, hypertension, hyperlipidemia, chronic back pain status post lumbar fusion, and rheumatoid arthritis. She presented to the emergency department with a chief complaint of palpitations. Patient reports feeling as if her heart was racing and stays home care nurse told her heart was beating very fast and she needed to go to the emergency department. Upon arrival to the emergency department EKG completed revealing sinus tachycardia at 142 bpm and repeat EKG obtained four minutes later revealing normal sinus rhythm at 64 bpm. Labs revealing an elevated troponin and 0.042, Patient reports that she did feel a couple aches and pains to her midsternal chest yesterday evening, but states this only lasted a few moments and went away and denies any other complaints including trudy phoresis, headache, lightheadedness, dizziness, shortness of breath, dyspnea with exertion, nausea, neck pain, shoulder pain, or any other complaints. Patient was recently admitted for NSTEMI 12/09/20 through 12/10/20 when she received an Echocardiogram revealing EF 50-55% with no significant valvular abnormalities and was taken for cardiac cath where she was found to have 85% stenosis of circumflex resulting in PCI and stent placement. She was started on metoprolol, Brilinta, and aspirin. Patient reports since she has been feeling better up until yesterday evening and she experienced a brief episode of chest pain followed by palpitations and tachycardia today. Review of systems: Pertinent positives and negatives as discussed in HPI, a complete review of systems was performed and all other systems are negative. Physical exam: Vital signs reviewed and stable. General: Nontoxic, no distress and appears stated age. Derm: Skin warm and dry, normal coloration for ethnicity. Head: Atraumatic, normocephalic and symmetric. Eyes: EOMs intact, no lid lag, and anicteric sclera Mouth: no lip lesions, mucus membranes moist Cardiovascular: regular rate and rhythm with normal S1S2, no murmur, positive posterior tibial pulses bilaterally, and cap refill < 2 seconds. Lungs: Respirations even, regular, and unlabored on room air. Lungs CTA bilaterally, no rhonchi, no rales, no wheezing, and no accessory muscle usage. Abdominal: soft, nontender to palpation, no guarding, no appreciable organomega ly Ext: ROM intact. No gross muscle atrophy, no edema, no contractures Neuro: Speech clear, face symmetrical and CN II-XII grossly intact with no noted focal neuro deficits Psych: Alert and oriented to person, place, time, and situation. Appropriate and pleasant affect. Assessment and Plan of Care: Elevated troponin, likely secondary to prolonged episode with elevated heart rate and left likely ACS Tachycardia History of CAD with recent stent placement to circumflex on 12/09/20 on dual an tiplatelet therapy with aspirin and Brilinta -Troponin 0.042 -Initial EKG completed revealing sinus tachycardia at 142 bpm and repeat EKG obtained four minutes later revealing normal sinus rhythm at 64 bpm. -We will continue to trend troponins to 6 hours 2 -Consult cardiology -Continue daily medication regimen with aspirin, candesartan, metoprolol, Zetia and Brilinta. -Telemetry monitoring -TSH with a.m. labs. -Heart healthy diet Hypertension Monitor vital signs and continue daily medication regimen candesartan and metoprolol. Hyperlipidemia Continue daily medication regimen with Zetia. Heart healthy diet Chronic back pain status post lumbar fusion Rheumatoid arthritis -Continue daily medication regimen and provide Symptomatic care and pain management. The patient is admitted with an anticipated greater than 2 midnight stay for evaluation of elevated troponin and tachycardia CODE STATUS: Full code DVT prophylaxis: Heparin Discussed with: Patient and patient's Anticipated discharge date: 1-[address]: Home A total of 45 minutes was spent on the care of this complex patient more than 50% of the time was spent in counseling and care coordination. Past Medical History Past Medical History: Hypertension, Rheumatoid Arthritis (RA) Additional Past Medical History / Comment(s): hard to walk very far due to back pain, uses a cane History of Any Multi-Drug Resistant Organisms: None Reported Past Surgical History: Back Surgery, Cholecystectomy, Hysterectomy, Tubal Lig ation Additional Past Surgical History / Comment(s): has had steroid shot in back Past Anesthesia/Blood Transfusion Reactions: No Reported Reaction Past Psychological History: No Psychological Hx Reported Smoking Status: Never smoker Past Alcohol Use History: Rare Past Drug Use History: None Reported - Past Family History Mother Family Medical History: CVA/TIA Additional Family Medical History / Comment(s): from stroke Father Family Medical History: No Reported History Medications and Allergies Home Medications Medication Instructions Recorded Confirmed Type metHOTREXate sodium [Methotrexate] 15 mg PO WE 08/15/13 01/04/21 History Candesartan Cilexetil [Atacand] 32 mg PO DAILY 12/16/17 01/04/21 History Folic Acid 0.4 mg PO DAILY 12/16/17 01/04/21 History Clotrimazole/Betamethasone Dip 1 applic TOPICAL BID PRN 12/08/20 01/04/21 History [Lotrisone Cream] rOPINIRole HCL [Requip] 0.25 mg PO HS 12/08/20 01/04/21 History Aspirin 81 mg PO DAILY 30 Days #30 tab 12/10/20 01/04/21 Rx Metoprolol Succinate (ER) [Toprol 25 mg PO DAILY 30 Days #30 tablet 12/10/20 01/04/21 Rx XL] Ticagrelor [Brilinta] 90 mg PO BID 30 Days #60 tab 12/10/20 01/04/21 Rx Ezetimibe [Zetia] 10 mg PO DAILY 01/04/21 01/04/21 History Famotidine [Pepcid] 20 mg PO BID 01/04/21 01/04/21 History predniSONE See Taper PO BID 01/04/21 01/04/21 History traMADol HCL [Ultram] 50 mg PO TID PRN 01/04/21 01/04/21 History Allergies Allergy/AdvReac Type Severity Reaction Status Date / Time No Known Allergies Allergy Verified 01/04/21 13:50 Physical Exam Vitals: Vital Signs Temp Pulse Resp BP Pulse Ox 01/04/21 14:14 85 L 01/04/21 14:02 86 24 104/51 90 L 01/04/21 10:40 98.8 F 98 16 140/91 96 Intake and Output 01/03/21 01/04/21 01/04/21 22:59 06:59 14:59 Other: Weight 82.1 kg Results CBC & Chem 7: 01/04/21 11:48 01/04/21 11:48 Labs: Abnormal Lab Results - Last 24 Hours (Table) 01/04/21 01/04/21 01/04/21 Range/Units 11:48 11:48 11:48 WBC 11.7 H (3.8-10.6) k/uL Neutrophils # 8.2 H (1.3-7.7) k/uL APTT 21.2 L (22.0-30.0) sec Chloride 110 H (98-107) mmol/L Carbon Dioxide 21 L (22-30) mmol/L BUN 23 H (7-17) mg/dL Glucose 116 H (74-99) mg/dL Magnesium 2.4 H (1.6-2.3) mg/dL AST 48 H (14-36) U/L ALT 53 H (4-34) U/L Troponin I (0.000-0.034) ng/mL 01/04/21 Range/Units 11:48 WBC (3.8-10.6) k/uL Neutrophils # (1.3-7.7) k/uL APTT (22.0-30.0) sec Chloride (98-107) mmol/L Carbon Dioxide (22-30) mmol/L BUN (7-17) mg/dL Glucose (74-99) mg/dL Magnesium (1.6-2.3) mg/dL AST (14-36) U/L ALT (4-34) U/L Troponin I 0.042 H* (0.000-0.034) ng/mL <Debra Guthrie - Last Filed: 01/04/21 18:32> History of Present Illness Patient seen and evaluated by me independently. Patient was also seen by IVETTE, the original author of this note. I am in agreement with the subjective, physical exam, and assessment and plan as documented with the addition/changes of my exam and assessment below. Gen: awake, alert HEENT: normocephalic, atraumatic, good hearing acuity, moist mucous membranes Resp: good air exchange, breathing comfortably with no accessory muscle use CVS: good distal perfusion x 4, GI: soft, NTTP, ND : no SPT, no CVAT, berumen catheter not present MSK: no pitting edema, no clubbing Neuro: non-focal, moving all extremities Psych: cooperative, euthymic mood Plan: Agree with the plan listed above with no changes Physical Exam Osteopathic Statement: *. No significant issues noted on an osteopathic structural exam other than those noted in the History and Physical/Consult. Vitals: Vital Signs Temp Pulse Resp BP Pulse Ox 01/04/21 15:49 62 18 153/70 99 01/04/21 14:23 66 18 155/68 99 01/04/21 14:14 85 L 01/04/21 14:02 86 24 104/51 90 L 01/04/21 10:40 98.8 F 98 16 140/91 96 Intake and Output 01/04/21 01/04/21 01/04/21 06:59 14:59 22:59 Other: Weight 82.1 kg Results CBC & Chem 7: 01/04/21 11:48 01/04/21 11:48 Labs: Abnormal Lab Results - Last 24 Hours (Table) 01/04/21 01/04/21 01/04/21 Range/Units 11:48 11:48 11:48 WBC 11.7 H (3.8-10.6) k/uL Neutrophils # 8.2 H (1.3-7.7) k/uL APTT 21.2 L (22.0-30.0) sec Chloride 110 H (98-107) mmol/L Carbon Dioxide 21 L (22-30) mmol/L BUN 23 H (7-17) mg/dL Glucose 116 H (74-99) mg/dL Magnesium 2.4 H (1.6-2.3) mg/dL AST 48 H (14-36) U/L ALT 53 H (4-34) U/L Troponin I (0.000-0.034) ng/mL 01/04/21 01/04/21 Range/Units 11:48 15:58 WBC (3.8-10.6) k/uL Neutrophils # (1.3-7.7) k/uL APTT (22.0-30.0) sec Chloride (98-107) mmol/L Carbon Dioxide (22-30) mmol/L BUN (7-17) mg/dL Glucose (74-99) mg/dL Magnesium (1.6-2.3) mg/dL AST (14-36) U/L ALT (4-34) U/L Troponin I 0.042 H* 0.164 H* (0.000-0.034) ng/mL
[2021-01-04] MEDS ORDERED: HEPARIN SODIUM 1,000 UN/ML (10ML VL) IV ONE (19:12)
[2021-01-04] MEDS ORDERED: HEPARIN SODIUM 1,000 UN/ML (10ML VL) IV PRN (19:12)
[2021-01-04] MEDS ORDERED: HEPARIN SOD,PORK IN 0.45% NACL 25,000 UNIT in 0.45% NACL 1 250ML.BAG IV SCH (19:15)
[2021-01-04] MEDS: FAMOTIDINE 20 MG TAB PO SCH (20:46)
[2021-01-04] MEDS: TICAGRELOR 90 MG TAB PO SCH (20:47)
[2021-01-04] MEDS ORDERED: HEPARIN SODIUM,PORCINE/PF 5,000 UNIT/0.5 ML SYRINGE SQ SCH (21:00)
[2021-01-04] MEDS ORDERED: MELATONIN 3 MG TABLET PO SCH (23:45)
[2021-01-05 03:31] LABS: Partial Thromboplastin Time 57.4 sec (22.0-30.0); Prothrombin Time 10.7 sec (9.0-12.0)
[2021-01-05 03:34] LABS: Basophils # (A) 0.1 k/uL (0-0.2); Basophils % (A) 1 %; Eosinophils # (A) 0.1 k/uL (0-0.7); Eosinophils % (A) 1 %; HCT 42.4 % (34.0-46.0); HGB 14.3 gm/dL (11.4-16.0); Lymphocytes # (A) 2.9 k/uL (1.0-4.8); Lymphocytes % (A) 35 %; MCH 33.8 pg (25.0-35.0); MCHC 33.6 g/dL (31.0-37.0); MCV 100.3 fL (80.0-100.0); Macrocytosis Slight; Mean Platelet Volume 7.7; Monocytes # (A) 0.3 k/uL (0-1.0); Monocytes % (A) 4 %; Neutrophils # (A) 4.9 k/uL (1.3-7.7); Neutrophils % (A) 58 %; Platelet Count 228 k/uL (150-450); RBC 4.23 m/uL (3.80-5.40); RDW 14.5 % (11.5-15.5); WBC 8.3 k/uL (3.8-10.6)
[2021-01-05 04:43] LABS: Calcium 10.1 mg/dL (8.4-10.2); Magnesium 2.4 mg/dL (1.6-2.3)
[2021-01-05 04:53] LABS: Potassium 4.3 mmol/L (3.5-5.1)
[2021-01-05] MEDS ORDERED: FOLIC ACID 1 MG TAB PO SCH (09:00)
[2021-01-05] MEDS ORDERED: LOSARTAN 50 MG TAB PO SCH (09:00)
[2021-01-05] MEDS ORDERED: ASPIRIN 81 MG PO SCH (09:00)
[2021-01-05] MEDS ORDERED: METOPROLOL SUCCINATE (ER) 25 MG TAB.ER.24H PO SCH (09:00)
[2021-01-05] MEDS ORDERED: EZETIMIBE 10 MG TAB PO SCH (09:00)
[2021-01-05] MEDS: TICAGRELOR 90 MG TAB PO SCH (10:58)
[2021-01-05] MEDS: FAMOTIDINE 20 MG TAB PO SCH (10:58)
[2021-01-05 11:01] VITALS: RESP 16
--- NOTE | 2021-01-05 12:01 | ECHOF ---
Referral Reason:elevated trop MEASUREMENTS -------- HEIGHT: 157.5 cm WEIGHT: 82.1 kg BP: 157/65 IVSd: 1.5 cm (0.6 - 1.1) LVIDd: 3.7 cm (3.9 - 5.3) LVPWd: 1.3 cm (0.6 - 1.1) IVSs: 2.1 cm LVIDs: 2.1 cm LVPWs: 1.7 cm FINDINGS -------- Sinus rhythm. Limited Study The left ventricular size is normal. There is mild concentric left ventricular hypertrophy. [facility] function is normal with, an EF between 55 - 60 %. There is a small, generalized pericardial effusion presen CONCLUSIONS -------- 1. The left ventricular size is normal. 2. There is mild concentric left ventricular hypertrophy. 3. There is a small, generalized pericardial effusion present. MANAGER FREELANCE: Ginger Bolanos RDCS
--- NOTE | 2021-01-05 12:10 | CONS ---
CONSULTATION CHIEF COMPLAINT: Elevated heart rate. This is a 80-year-old lady with history of coronary artery disease, status post angioplasty of circumflex coronary artery in the setting of a [id number]-elevation [place], hypertension and dyslipidemia, who had a visiting nurse seeing her at home, checked her blood pressure and heart rate. Heart rate was elevated, due to which she was sent to the emergency room, where an EKG showed sinus tachycardia with a heart rate of around 120 beats per minute. Her heart rate subsequently decreased to 60 beats per minute and her heart rate has been at 60 since. Her troponins came back slightly elevated. She is currently on IV heparin. EKG does not reveal any ischemic changes. The exact etiology for the inappropriate sinus tachycardia is unclear. Her hemoglobin is normal. TSH is normal. Coronavirus test is negative. She is not intravascularly volume-depleted. I am going to obtain a 2D echo, and if she does not have any new LV systolic dysfunction or wall motion abnormalities and check a D-dimer, and if the D- dimer is normal, we can discharge her home and arrange outpatient followup with Dr. Shi. We may consider doing an outpatient stress test on her. PAST MEDICAL HISTORY: Significant for coronary artery disease, status post angioplasty, hypertension, dyslipidemia, rheumatoid arthritis. MEDICATIONS: Medications at home included aspirin, Brilinta 90 b.i.d., Toprol-XL 25 daily, Zetia 10 daily, Atacand 32 daily, Ultram, prednisone. ALLERGIES: There are NO KNOWN DRUG ALLERGIES. FAMILY HISTORY: Negative for premature coronary artery disease. SOCIAL HISTORY: Negative for current smoking, EtOH abuse or drug abuse. REVIEW OF SYSTEMS: HEENT is unremarkable. CARDIAC: As described above. RESPIRATORY: Negative. GI: Negative. GENITOURINARY: Negative. ALLERGY/IMMUNOLOGY: Negative. SKIN: Negative. MUSCULOSKELETAL: Negative. ENDOCRINE: Negative. DERMATOLOGY: Negative. CONSTITUTIONAL: Negative. ONCOLOGICAL: Negative. CHILD SUPPORT AGENT: Negative. Rest of the system review is not relevant. PHYSICAL EXAMINATION: Heart rate is 57 beats per minute. Blood pressure is 157/62, respiratory rate 18. There is no jugular venous distention. Carotid upstroke is normal. There is no bruit. Chest exam reveals good air entry bilaterally. Heart exam reveals first and second heart sounds. No gallop. No murmur. No rub. Abdomen is soft, nontender. Examination of extremities did not reveal any edema. Peripheral pulses are felt. LABS: The hemoglobin is 14.3, platelet count is 228, potassium is 4.3. Creatinine is 0.76. Coronavirus test is negative. TSH is normal. Troponins are mildly elevated. ASSESSMENT: 1. Sinus tachycardia. 2. Elevated troponin; probably a type 2 myocardial infarction. 3. Recent [id number]-elevation myocardial infarction, status post catheterization and angioplasty of circumflex coronary artery. PLAN: I will check a D-dimer and a limited 2D echo. If the workup is benign, we can discharge her home and arrange outpatient followup with Dr. Shi. We will consider an outpatient Holter and a stress test. MMODL / IJN: [id number] /
--- NOTE | 2021-01-05 14:49 | P.PN ---
<Gui Herman - Last Filed: 01/05/21 14:25> Subjective Progress Note Date: 01/05/21 History of Presenting Illness: Patient is a 80-year-old female with a past medical history of CAD with stents, hypertension, hyperlipidemia, chronic back pain status post lumbar fusion, and rheumatoid arthritis. She presented to the emergency department with a chief complaint of palpitations. Patient reports feeling as if her heart was racing and stays home care nurse told her heart was beating very fast and she needed to go to the emergency department. Upon arrival to the emergency department EKG completed revealing sinus tachycardia at 142 bpm and repeat EKG obtained four minutes later revealing normal sinus rhythm at 64 bpm. Labs revealing an elevated troponin and 0.042, Patient reports that she did feel a couple aches and pains to her midsternal chest yesterday evening, but states this only lasted a few moments and went away and denies any other complaints including diaphores is, headache, lightheadedness, dizziness, shortness of breath, dyspnea with exertion, nausea, neck pain, shoulder pain, or any other complaints. Patient was recently admitted for NSTEMI 12/09/20 through 12/10/20 when she received an Echocardiogram revealing EF 50-55% with no significant valvular abnormalities and was taken for cardiac cath where she was found to have 85% stenosis of circumflex resulting in PCI and stent placement. She was started on metoprolol, Brilinta, and aspirin at that time. Patient is currently admitted under our services with consultation to cardiology. Physical exam: Patient was seen and fully evaluated at bedside this morning. She reports no further episodes of palpitations throughout the night and states "maybe" 1 or 2 brief episodes of "chest discomfort but not pain" only lasting less than a minute each time. She denies having any headache, lightheadedness, dizziness, shortness of breath, abdominal pain, nausea, vomiting, or experiencing any numbness/tingling/weakness/swelling in her extremities. Echocardiogram being completed at time of assessment. Vital signs reviewed and stable. General: Nontoxic, no distress and appears stated age. Derm: Skin warm and dry, normal coloration for ethnicity. Head: Atraumatic, normocephalic and symmetric. Eyes: EOMs intact, no lid lag, and anicteric sclera Mouth: no lip lesions, mucus membranes moist Cardiovascular: regular rate and rhythm with normal S1S2, no murmur, positive posterior tibial pulses bilaterally, and cap refill < 2 seconds. Lungs: Respirations even, regular, and unlabored on room air. Lungs CTA bilaterally, no rhonchi, no rales, no wheezing, and no accessory muscle usage. Abdominal: soft, nontender to palpation, no guarding, no appreciable organomegaly Ext: ROM intact. No gross muscle atrophy, no edema, no contractures Neuro: Speech clear, face symmetrical and CN II-XII grossly intact with no noted focal neuro deficits Psych: Alert and oriented to person, place, time, and situation. Appropriate and pleasant affect. Assessment and Plan of Care: NSTEMI Sinus tachycardia History of CAD with recent stent placement to circumflex on 12/09/20 on dual antiplatelet therapy with aspirin and Brilinta -Troponin 0.042 with repeat of 0.164 -Initial EKG completed revealing sinus tachycardia at 142 bpm and repeat EKG obtained four minutes later revealing normal sinus rhythm at 64 bpm. -Cardiology following, appreciate further recommendations. -Continue daily medication regimen with aspirin, candesartan, metoprolol, Zetia and Brilinta. -Telemetry monitoring -TSH normal findings at 3.480. -D-dimer 0.44. -Heart healthy diet. -Echocardiogram completed showing normal EF between 55 and 60% with a small generalized pericardial effusion. Hypertension Monitor vital signs and continue daily medication regimen candesartan and metoprolol. Hyperlipidemia Continue daily medication regimen with Zetia. Heart healthy diet Chronic back pain status post lumbar fusion Rheumatoid arthritis -Continue daily medication regimen and provide Symptomatic care and pain management. CODE STATUS: Full code DVT prophylaxis: Heparin Discussed with: Patient and RN Anticipated discharge date: 1-[address]: Home A total of 45 minutes was spent on the care of this complex patient more than 50% of the time was spent in counseling and care coordination. Objective - Vital Signs Vital signs: Vital Signs Temp 97.5 F L 01/05/21 03:10 Pulse 57 L 01/05/21 03:10 Resp 18 01/05/21 03:10 BP 157/63 01/05/21 03:10 Pulse Ox 100 01/05/21 03:10 Intake & Output 01/04/21 01/05/21 01/05/21 18:59 06:59 18:59 Weight 82.1 kg 82.1 kg Other: Voiding Method Toilet # Voids 1 - Labs CBC & Chem 7: 01/05/21 03:00 01/05/21 03:00 Labs: Abnormal Lab Results - Last 24 Hours (Table) 01/04/21 01/04/21 01/04/21 Range/Units 11:48 11:48 11:48 WBC 11.7 H (3.8-10.6) k/uL MCV (80.0-100.0) fL Neutrophils # 8.2 H (1.3-7.7) k/uL APTT 21.2 L (22.0-30.0) sec Chloride 110 H (98-107) mmol/L Carbon Dioxide 21 L (22-30) mmol/L BUN 23 H (7-17) mg/dL Glucose 116 H (74-99) mg/dL Magnesium 2.4 H (1.6-2.3) mg/dL AST 48 H (14-36) U/L ALT 53 H (4-34) U/L Troponin I (0.000-0.034) ng/mL 01/04/21 01/04/21 01/05/21 Range/Units 11:48 15:58 03:00 WBC (3.8-10.6) k/uL MCV 100.3 H (80.0-100.0) fL Neutrophils # (1.3-7.7) k/uL APTT (22.0-30.0) sec Chloride (98-107) mmol/L Carbon Dioxide (22-30) mmol/L BUN (7-17) mg/dL Glucose (74-99) mg/dL Magnesium (1.6-2.3) mg/dL AST (14-36) U/L ALT (4-34) U/L Troponin I 0.042 H* 0.164 H* (0.000-0.034) ng/mL 01/05/21 01/05/21 Range/Units 03:00 03:00 WBC (3.8-10.6) k/uL MCV (80.0-100.0) fL Neutrophils # (1.3-7.7) k/uL APTT 57.4 H (22.0-30.0) sec Chloride 111 H (98-107) mmol/L Carbon Dioxide 21 L (22-30) mmol/L BUN (7-17) mg/dL Glucose 105 H (74-99) mg/dL Magnesium 2.4 H (1.6-2.3) mg/dL AST (14-36) U/L ALT (4-34) U/L Troponin I (0.000-0.034) ng/mL <Debra Guthrie - Last Filed: 01/05/21 18:45> Subjective I reviewed the documentation as provided by the IVETTE above, who is the original author of this note. I agree with the documented assessment and plan, with the following changes: none Objective - Vital Signs Vital signs: Vital Signs Temp 97.0 F L 01/05/21 16:00 Pulse 72 01/05/21 16:00 Resp 16 01/05/21 16:00 BP 125/62 01/05/21 16:00 Pulse Ox 98 01/05/21 16:00 Intake & Output 01/04/21 01/05/21 01/05/21 18:59 06:59 18:59 Intake Total 240 Balance 240 Weight 82.1 kg 82.1 kg Intake: Oral 240 Other: Voiding Method Toilet Toilet # Voids 1 - Labs CBC & Chem 7: 01/05/21 03:00 01/05/21 03:00 Labs: Abnormal Lab Results - Last 24 Hours (Table) 01/05/21 01/05/21 01/05/21 Range/Units 03:00 03:00 03:00 MCV 100.3 H (80.0-100.0) fL APTT 57.4 H (22.0-30.0) sec Chloride 111 H (98-107) mmol/L Carbon Dioxide 21 L (22-30) mmol/L Glucose 105 H (74-99) mg/dL Magnesium 2.4 H (1.6-2.3) mg/dL
[2021-01-05 16:22] VITALS: BP 125/62; PULSE 72; TEMP 97
--- NOTE | 2021-01-05 17:19 | P.DS ---
<Gui Herman - Last Filed: 01/05/21 17:15> Providers Expected date of discharge: 01/05/21 Hospital Course: Discharge Diagnosis: NSTEMI, type II Sinus tachycardia History of CAD with recent stent placement to circumflex on 12/09/20 on dual antiplatelet therapy with aspirin and Brilinta Hypertension Hyperlipidemia Chronic back pain status post lumbar fusion Rheumatoid arthritis Hospital Course: Patient is a 80-year-old female with a past medical history of CAD with stents, hypertension, hyperlipidemia, chronic back pain status post lumbar fusion, and rheumatoid arthritis. She presented to the emergency department with a chief complaint of palpitations. Patient reports feeling as if her heart was racing and stays home care nurse told her heart was beating very fast and she needed to go to the emergency department. Upon arrival to the emergency department EKG completed revealing sinus tachycardia at 142 bpm and repeat EKG obtained four minutes later revealing normal sinus rhythm at 64 bpm. Labs revealing an elevated troponin and 0.042, Patient reports that she did feel a couple aches and pains to her midsternal chest yesterday evening, but states this only lasted a few moments and went away and denies any other complaints including diaphoresis, headache, lightheadedness, dizziness, shortness of breath, dyspnea with exertion, nausea, neck pain, shoulder pain, or any other complaints. Patient was recently admitted for NSTEMI 12/09/20 through 12/10/20 when she received an Echocardiogram revealing EF 50-55% with no significant valvular abnormalities and was taken for cardiac cath where she was found to have 85% stenosis of circumflex resulting in PCI and stent placement. She was started on metoprolol, Brilinta, and aspirin at that time. Patient was then admitted under our services with consultation to cardiology. Patient had no further episodes of palpitation, runs of tachycardia, or reports of chest pain. Echocardiogram was completed showing normal EF between 55 and 60% with a small generalized pericardial effusion. Cardiology recommending patient follow up outpatient. Patient's condition currently stable and she is medically stable for discharge home to resume normal daily medication regimen with metoprolol, Brilinta, and aspirin and no other changes at this time. A total of 45 minutes of time were spent preparing this complex discharge summary. Assessment: I reviewed the documentation as provided by the IVETTE above, who is the original author of this note. I agree with the documented assessment and plan, with the following changes: None Patient Condition at Discharge: Stable Plan - Discharge Summary Discharge Rx Participant: No New Discharge Prescriptions: Continue metHOTREXate sodium [Methotrexate] 15 mg PO WE Folic Acid 0.4 mg PO DAILY Candesartan Cilexetil [Atacand] 32 mg PO DAILY Aspirin 81 mg PO DAILY 30 Days #30 tab traMADol HCL [Ultram] 50 mg PO TID PRN PRN Reason: Pain Famotidine [Pepcid] 20 mg PO BID rOPINIRole HCL [Requip] 0.25 mg PO HS Clotrimazole/Betamethasone Dip [Lotrisone Cream] 1 applic TOPICAL BID PRN PRN Reason: Rash Ticagrelor [Brilinta] 90 mg PO BID 30 Days #60 tab Metoprolol Succinate (ER) [Toprol XL] 25 mg PO DAILY 30 Days #30 tablet predniSONE See Taper PO BID Ezetimibe [Zetia] 10 mg PO DAILY Discharge Medication List metHOTREXate sodium [Methotrexate] 15 mg PO WE 08/15/13 [History] Candesartan Cilexetil [Atacand] 32 mg PO DAILY 12/16/17 [History] Folic Acid 0.4 mg PO DAILY 12/16/17 [History] Clotrimazole/Betamethasone Dip [Lotrisone Cream] 1 applic TOPICAL BID PRN 12/08/20 [History] rOPINIRole HCL [Requip] 0.25 mg PO HS 12/08/20 [History] Aspirin 81 mg PO DAILY 30 Days #30 tab 12/10/20 [Rx] Metoprolol Succinate (ER) [Toprol XL] 25 mg PO DAILY 30 Days #30 tablet 12/10/20 [Rx] Ticagrelor [Brilinta] 90 mg PO BID 30 Days #60 tab 12/10/20 [Rx] Ezetimibe [Zetia] 10 mg PO DAILY 01/04/21 [History] Famotidine [Pepcid] 20 mg PO BID 01/04/21 [History] predniSONE See Taper PO BID 01/04/21 [History] traMADol HCL [Ultram] 50 mg PO TID PRN 01/04/21 [History] Follow up Appointment(s)/Referral(s): Racquel Bennett MD [Primary Care Provider] - 1-2 days (Call tomorrow to schedule follow up) Ammon Zhong MD [STAFF PHYSICIAN] - 01/18/21 2:45 pm Patient Instructions/Handouts: Heart Palpitations (GEN) Discharge Disposition: HOME SELF-CARE <Debra Guthrie - Last Filed: 01/05/21 18:42> Providers Date of admission: 01/04/21 14:57 Attending physician: Debra Guthrie MD Consults: 01/04/21 14:42 Consult Physician Routine Consulting Provider: Ammon Zhong Consult Reason/Comments: Tachyarrhythmia w/ elev trop recent stent placement to circumflex 12/09/20 Do you want consulting provider notified?: Yes Primary care physician: Racquel Bennett MD
[2021-01-05] MEDS ORDERED: BRILINTA 90 MG PO SCH (21:00)
[2021-01-06] MEDS ORDERED: ASPIRIN 81 MG CHEWABLE TABLET PO SCH (09:00)
[2021-01-06] MEDS ORDERED: METOPROLOL SUCCINATE (ER) 25 MG TAB.ER.24H PO SCH (09:00)
[2021-01-06] MEDS ORDERED: EZETIMIBE 10 MG TAB PO SCH (09:00)
[2021-01-06] MEDS ORDERED: FAMOTIDINE 20 MG TAB PO SCH (09:00)
== END 2021-01-05 17:34 | disposition home or self-care (01) ==
LOC: EC 10:31 → 6NMEDSUR 14:57 → 3SCARD 19:54
PROVIDERS: ADMIT Internal Medicine; ATTEND Internal Medicine
DX: I21.A1 Myocardial infarction type 2 (principal); I25.10 Atherosclerotic heart disease of native coronary artery without angina pectoris; R00.0 Tachycardia, unspecified; M06.9 Rheumatoid arthritis, unspecified; I10 Essential (primary) hypertension; E78.5 Hyperlipidemia, unspecified; G89.29 Other chronic pain; M54.9 Dorsalgia, unspecified; Z79.82 Long term (current) use of aspirin; Z79.02 Long term (current) use of antithrombotics/antiplatelets; Z79.52 Long term (current) use of systemic steroids; Z79.899 Other long term (current) drug therapy; Z95.5 Presence of coronary angioplasty implant and graft; Z20.822 Contact with and (suspected) exposure to COVID-19; Z90.49 Acquired absence of other specified parts of digestive tract; Z90.710 Acquired absence of both cervix and uterus; Z98.51 Tubal ligation status; Z98.890 Other specified postprocedural states; Z98.1 Arthrodesis status; Z82.3 Family history of stroke
CPT/HCPCS: 96376; 96361; 96365; 96366 ×2; 99285; 36415; 93005; 93308; 93225; 93226; 85379; 80053; 80048; 84443; 83735 ×2; 84484; 85025 ×2; 85610 ×2; 85730 ×2; 87635; 71046; G0378 ×3; J1644 ×2

== ENCOUNTER → 2024-03-11 | Outpatient (CLI) | payer MEDICARE, BC ==
[2024-03-11 15:44] LABS: ALT 30 U/L (8-44); AST 32 U/L (13-35); Albumin 4.3 g/dL (3.8-4.9); Albumin/Globulin Ratio 1.87 Ratio (1.60-3.17); Alkaline Phosphatase 71 U/L (41-126); BUN/Creat Ratio 23.67 Ratio (12.00-20.00); Blood Urea Nitrogen 21.3 mg/dL (9.0-27.0); Calcium 9.9 mg/dL (8.7-10.3); Carbon Dioxide 20.8 mmol/L (21.6-31.8); Chloride 106 mmol/L (96-109); Chol/HDL Ratio 2.45 Ratio; Globulin 2.3 g/dL (1.6-3.3); Glucose 116 mg/dL (70-110); LDL Cholesterol,Calculated 76.2 mg/dL (0.0-131.0); Potassium 4.3 mmol/L (3.5-5.5); Sodium 140 mmol/L (135-145); Total Bilirubin 0.6 mg/dL (0.3-1.2); Total Protein 6.6 g/dL (6.2-8.2)
[2024-03-12 09:29] LABS: Protein, Total 6.5 g/dL (6.2-8.2)
== END | disposition home or self-care (01) ==
LOC: LABWHC1 09:19
PROVIDERS: ATTEND Family Medicine
DX: E78.5 Hyperlipidemia, unspecified (principal); N18.30 Chronic kidney disease, stage 3 unspecified; D47.2 Monoclonal gammopathy
CPT/HCPCS: 36415; 80053; 80061; 84165

== ENCOUNTER → 2024-03-27 | Outpatient (CLI) | payer MEDICARE, BC ==
[2024-03-27 15:49] LABS: Protein, Total 6.3 g/dL (6.2-8.2)
== END | disposition home or self-care (01) ==
LOC: LABWHC1 09:09
PROVIDERS: ATTEND Family Medicine
DX: D47.2 Monoclonal gammopathy (principal); R73.01 Impaired fasting glucose
CPT/HCPCS: 36415; 83036; 83883; 84155; 84165; 84166; 86334